=== PATIENT | female | born 1970 | race Hispanic/Latino ===

== ENCOUNTER 2018-03-08 10:10 | Emergency (ER) | payer BC ==
[2018-03-08 10:16] VITALS: BMI 38.4
[2018-03-08 10:23] VITALS: RESP 18; TEMP 97.9; O2SAT 100
--- NOTE | 2018-03-08 10:23 | ED PDOC ---
Arrival/HPI - General Chief Complaint: Chest Pain Time Seen by Provider: 03/08/18 10:21 Historian: Patient - History of Present Illness Narrative History of Present Illness (Text): 03/08/18 10:30 47 year old female, who presents to the emergency department complaining of intermittent chest pain since 2 weeks. Patient reports going to her PMD and he advised her to come here. She describe the pain to be pressure and notes being given Aspirin FRONT OFFICE COORDINATOR. No other complaints were made. pt characterizes pain as pressure pain "radiating to back" 03/08/18 15:15 Time/Duration: > week Symptom Onset: Gradual Symptom Course: Unchanged, Intermittent Quality: Pressure Context: Home 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) - Infectious Disease Hx of Infectious Diseases: None - Tetanus Immunization Tetanus Immunization: Up to Date - Past Medical History Past Medical History: No Previous - Cardiac Hx Cardiac Disorders: No Hx Angina: No - Pulmonary Hx Respiratory Disorders: No - Neurological Hx Neurological Disorder: No - HEENT Hx HEENT Disorder: No - Renal Hx Renal Disorder: No - Endocrine/Metabolic Hx Endocrine Disorders: No - Hematological/Oncological Hx Blood Disorders: No - Integumentary Hx Dermatological Disorder: No - Musculoskeletal/Rheumatological Hx Musculoskeletal Disorders: Yes Hx Arthritis: Yes Hx Back Pain: Yes (lumbar strain) - Gastrointestinal Hx Gastrointestinal Disorders: Yes Hx Diverticulitis: Yes - Genitourinary/Gynecological Hx Genitourinary Disorders: No - Psychiatric Hx Psychophysiologic Disorder: Yes Hx Anxiety: Yes Hx Substance Use: No - Past Surgical History Past Surgical History: Non-Contributing (hip surgery R knee surgery) - Surgical History Hx Orthopedic Surgery: No Other/Comment: right knee surgery. L hip sx - Anesthesia Hx Anesthesia: Yes Hx Anesthesia Reactions: No Hx Malignant Hyperthermia: No - Suicidal Assessment Feels Threatened In Home Enviroment: No Family/Social History - Physician Review Nursing Documentation Reviewed: Yes Family/Social History: Unknown Family HX Smoking Status: Vape Hx Alcohol Use: No Hx Substance Use: No Hx Substance Use Treatment: No Allergies/Home Meds Allergies/Adverse Reactions: Allergies No Known Allergies Allergy (Verified 09/24/17 19:02) Home Medications: Home Meds Medication Instructions Recorded Confirmed No Known Home Med 03/08/18 03/08/18 Review of Systems - Physician Review All systems were reviewed & negative as marked: Yes - Review of Systems Constitutional: absent: Fevers Respiratory: absent: SOB Cardiovascular: Chest Pain Physical Exam Vital Signs Reviewed: Yes Vital Signs Temp Pulse Resp BP Pulse Ox 03/08/18 13:28 72 18 142/72 100 03/08/18 12:15 79 18 157/89 H 100 03/08/18 10:23 97.9 F 88 18 144/76 100 Temperature: Afebrile Blood Pressure: Normal Pulse: Regular Respiratory Rate: Normal Appearance: Positive for: Well-Appearing, Non-Toxic, Comfortable Pain Distress: None Mental Status: Positive for: Alert and Oriented X 3 - Systems Exam Head: Present: Atraumatic, Normocephalic Pupils: Present: PERRL Extroacular Muscles: Present: EOMI Conjunctiva: Present: Normal Mouth: Present: Moist Mucous Membranes Respiratory/Chest: Present: Clear to Auscultation, Good Air Exchange. No: Respiratory Distress, Accessory Muscle Use, Wheezes, Rales, Retracting, Rhonchi Cardiovascular: Present: Regular Rate and Rhythm, Normal S1, S2. No: Murmurs Neurological: Present: GCS=15, CN II-XII Intact, Speech Normal Skin: Present: Warm, Dry, Normal Color. No: Rashes Psychiatric: Present: Alert, Oriented x 3, Normal Insight, Normal Concentration Medical Decision Making ED Course and Treatment: 03/08/18 Impression: 47 year old female with unremarkable physical exam, complaining of chest pain for 2 weeks. Plan: -- EKG -- Chest X-ray -- Labs -- Urinalysis -- Reassess and disposition Progress Notes: EKG: Ordered, reviewed, and independently interpreted the EKG. Rate : 89 BPM Rhythm : NSR Interpretation : No ST-segment elevations or depressions, no T-wave inversions, normal intervals. Comparison : No previous EKG for comparison. 03/08/18 11:10 Chest X-ray: Creator : Chasidy Ramos MD COMPARISON:09/24/2017. FINDINGS: LUNGS: The lungs are well inflated and clear. PLEURA: No significant pleural effusion identified, no pneumothorax apparent. CARDIOVASCULAR: The heart is normal in size. OSSEOUS STRUCTURES: No significant abnormalities. VISUALIZED UPPER ABDOMEN: Normal. OTHER FINDINGS: None. IMPRESSION: No active pulmonary disease. 03/08/18 15:16 pt with cp, releived by nitro in er. characterizes pain as radiating to back. angio neg. requested admission, pt refuses signs ama 03/08/18 15:25 Leaving Against Medical Advice (AMA): The patient is choosing to leave against medical advice. I have personally explained to the patient that choosing to do so may result in permanent bodily harm or . I have discussed at great length that without further evaluation and monitoring there may be unforeseen circumstances and/or deterioration causing permanent bodily harm or as a result of their choice. The patient is alert, oriented, and shows the mental capacity to make clear decisions regarding the patients health care at this time. The patient continues to wish to leave against medical advice. In light of the patients decision to leave against medical advice, follow-up has been arranged and the patient is aware of the importance to following up as instructed. The patient has been advised that they should return to the emergency room immediately if they change their mind at any time, or if their condition begins to change or worsen in any way. - Lab Interpretations Lab Results: 03/08/18 10:40 03/08/18 10:40 Lab Results 03/08/18 11:41: Urine Color Yellow, Urine Appearance Clear, Urine pH 7.5, Ur Specific [place] 1.015, Urine Protein Negative, Urine Glucose (UA) Negative, Urine Ketones Negative, Urine Blood Negative, Urine Nitrate Negative, Urine Bilirubin Negative, Urine Urobilinogen 0.2, Ur Leukocyte Esterase Negative 03/08/18 10:40: Sodium 140, Potassium 4.2, Chloride 105, Carbon Dioxide 23, Anion Gap 16, BUN 9, Creatinine 0.8, Est GFR ( Amer) > 60, Est GFR (Non- Af Amer) > 60, Random Glucose 99, Calcium 9.6, Magnesium 1.9, Total Bilirubin 0.4, AST 21, ALT 25, Alkaline Phosphatase 51, Lactate Dehydrogenase 355, Total Creatine Kinase 122, Troponin I < 0.01, NT-Pro-B Natriuret Pep 144, Total Protein 7.0, Albumin 4.2, Globulin 2.8, Albumin/Globulin Ratio 1.5 03/08/18 10:40: PT 12.1, INR 1.05, APTT 27.4 03/08/18 10:40: WBC 8.4, RBC 4.78, Hgb 13.1, Hct 40.1, MCV 83.9, MCH 27.4, MCHC 32.7, RDW 14.1, Plt Count 222, MPV 10.4, Gran % 52.7, Lymph % (Auto) 38.2 H, Walsh % (Auto) 7.1 H, Eos % (Auto) 1.9, Baso % (Auto) 0.1, Gran # 4.44, Lymph # ( Auto) 3.2, Walsh # (Auto) 0.6, Eos # (Auto) 0.2, Baso # (Auto) 0.01 I have reviewed the lab results: Yes - RAD Interpretation Radiology Orders: 03/08/18 10:30 CHEST PORTABLE [RAD] Stat 03/08/18 11:14 ANGIOGRAPHY DISECTION PROTOCOL [CT] Stat Records Custodian: Radiologist - EKG Interpretation Interpreted by ED Physician: Yes Type: 12 lead EKG - Medication Orders Current Medication Orders: Discontinued Medications Nitroglycerin (Nitrostat Sl Tab) 0.4 mg SL STAT STA Stop: 03/08/18 11:08 Last Admin: 03/08/18 11:31 Dose: 0.4 mg - Scribe Statement The provider has reviewed the documentation as recorded by the Arnold Bragg Provider Scribe Attestation: All medical record entries made by the Annamariaibe were at my direction and personally dictated by me. I have reviewed the chart and agree that the record accurately reflects my personal performance of the history, physical exam, medical decision making, and the department course for this patient. I have also personally directed, reviewed, and agree with the discharge instructions and disposition. Disposition/Present on Arrival - Present on Arrival Any Indicators Present on Arrival: No History of DVT/PE: No History of Uncontrolled Diabetes: No Urinary Catheter: No History of Decub. Ulcer: No History Surgical Site Infection Following: None - Disposition Have Diagnosis and Disposition been Completed?: Yes Diagnosis: Chest pain, Left against medical advice Disposition: AGAINST MEDICAL ADVICE Disposition Time: 03:00 Condition: UNKNOWN Discharge Instructions (ExitCare): Leaving Against Medical Advice, Chest Pain ( ED) Additional Instructions: return to er with worsening symptoms or concerns. please see marketing intern. Referrals: Lianna Crowley MD [Staff Provider] - Follow up with primary Lance Donnelly MD [Primary Care Provider] - Follow up with primary Pj Ash MD [Staff Provider] - Follow up with primary Forms: [employer] (Mauritanian)
[2018-03-08 10:49] LABS: BASO # 0.01 K/mm3 (0.0-2.0); BASO % 0.1 % (0.0-3.0); EOS # 0.2 (0.0-0.7); EOS % 1.9 % (1.5-5.0); GRAN # 4.44 (1.4-6.5); GRAN % 52.7 % (50.0-68.0); HEMOGLOBIN 13.1 g/dL (12.0-16.0); LYMPH # 3.2 (1.2-3.4); LYMPH % 38.2 % (22.0-35.0); MEAN CELL VOLUME 83.9 fl (80.0-105.0); MEAN CORPUSCULAR HEMOGLOBIN 27.4 pg (25.0-35.0); MEAN CORPUSCULAR HGB CONC 32.7 g/dl (31.0-37.0); MEAN PLATELET VOLUME 10.4 fl (7.0-11.0); MONO # 0.6 (0.1-0.6); MONO % 7.1 % (1.0-6.0); RBC 4.78 10^6/uL (3.5-6.1); RED CELL DISTRIBUTION WIDTH 14.1 % (11.5-14.5); WHITE BLOOD COUNT 8.4 10^3/ul (4.5-11.0)
[2018-03-08 11:04] LABS: INR 1.05 (0.93-1.08); PARTIAL THROMBOPLASTIN TIME 27.4 Seconds (25.1-36.5); PROTHROMBIN TIME 12.1 SECONDS (9.4-12.5)
--- NOTE | 2018-03-08 11:09 | RAD ---
HISTORY: Chest pain COMPARISON: 09/24/2017. FINDINGS: LUNGS: The lungs are well inflated and clear. PLEURA: No significant pleural effusion identified, no pneumothorax apparent. CARDIOVASCULAR: The heart is normal in size. OSSEOUS STRUCTURES: No significant abnormalities. VISUALIZED UPPER ABDOMEN: Normal. OTHER FINDINGS: None. IMPRESSION: No active pulmonary disease.
[2018-03-08 11:12] LABS: ALB/GLOB RATIO 1.5 (1.1-1.8); ALBUMIN 4.2 g/dL (3.0-4.8); ALT/SGPT 25 U/L (7-56); AST/SGOT 21 U/L (14-36); B-TYPE NATRIURETIC PEPTIDE 144 pg/mL (0-450); BLOOD UREA NITROGEN 9 mg/dL (7-21); CALCIUM 9.6 mg/dL (8.4-10.5); GFR AFRICAN-AMERICAN > 60; GFR NON-AFRICAN AMERICAN > 60
[2018-03-08 11:13] LABS: TROPONIN I < 0.01 ng/mL
[2018-03-08 12:10] LABS: PH,URINE 7.5 (4.7-8.0); URINE BILIRUBIN NEGATIVE (NEGATIVE); URINE BLOOD NEGATIVE (NEGATIVE); URINE GLUCOSE (UA) NEGATIVE (NEGATIVE); URINE LEUKOCYTE ESTERASE NEGATIVE Leu/uL (NEGATIVE); URINE PROTEIN NEGATIVE mg/dL (<30 mg/dL); URINE UROBILINOGEN 0.2 E.U./dL (<1 E.U./dL)
[2018-03-08 12:11] LABS: URINE APPEARANCE CLEAR (CLEAR); URINE COLOR YELLOW (YELLOW)
--- NOTE | 2018-03-08 13:09 | CT ---
PROCEDURE: CT Angiography Chest, Abdomen and Pelvis with and without intravenous contrast HISTORY: Chest pain radiating to back. COMPARISON: None. TECHNIQUE: Contiguous axial images of the chest, abdomen and pelvis were obtained in the phase of aortic enhancement. A noncontrast enhanced CT of the chest was also obtained to evaluate for possible intramural thrombus. Coronal and sagittal reformats were generated. IV dose administered: 150 cc Omnipaque 350. Radiation dose: Total exam DLP = 1432.51 mGy-cm. This CT exam was performed using one or more of the following dose reduction techniques: Automated exposure control, adjustment of the mA and/or kV according to patient size, and/or use of iterative reconstruction technique. FINDINGS: CT ANGIOGRAPHY OF THE CHEST WITH & WITHOUT CONTRAST: AORTA (CHEST AND ABDOMEN): The thoracic and abdominal aorta are unremarkable, without aneurysm, dissection or rupture. No intramural thrombus identified in the thoracic aorta on the non-contrast ct of the chest. The celiac axis, superior mesenteric artery, inferior mesenteric artery and the renal arteries are widely patent. The pelvic arteries are unremarkable. LUNGS: Clear. No nodule, mass or consolidation. MEDIASTINUM: Unremarkable. Normal caliber aorta and pulmonary arterial trunk. No aortic dissection. Normal size heart. LYMPH NODES: Unremarkable. PLEURA: Unremarkable. No pneumothorax. No pleural fluid. BONES: Unremarkable. OTHER FINDINGS: None. CT ANGIOGRAPHY OF THE ABDOMEN AND PELVIS WITH CONTRAST: LIVER: Unremarkable. No gross lesion or ductal dilatation. GALLBLADDER AND BILE DUCTS: Unremarkable. PANCREAS: Unremarkable. No gross lesion or ductal dilatation. SPLEEN: Unremarkable. ADRENALS: Unremarkable. No mass. KIDNEYS AND URETERS: Unremarkable. No hydronephrosis. No solid mass. VASCULATURE: Unremarkable. No aortic aneurysm. STOMACH AND BOWEL: Diverticulosis without an acute inflammatory component or other associated pathologic process. APPENDIX: Normal appendix. PERITONEUM: Unremarkable. No free fluid. No free air. LYMPH NODES: Unremarkable. No enlarged lymph nodes. BLADDER: Unremarkable. REPRODUCTIVE: Pelvic mass likely originating from the left adnexa 3.2 x 3.4 cm. Please refer to sagittal series 604, image 56. The orthogonal axial component of this study identifies the mass on series 6, image 184. BONES: No acute fracture. Status post left LAYNE. No abnormalities with the prosthetic device identified OTHER FINDINGS: None. IMPRESSION: No evidence of aortic aneurysm aortic dissection. No visible pulmonary emboli although study is not designed by protocol to assess at and beyond the segmental branches. Pelvic mass likely emanating from the left adnexa, elective follow-up recommended.
[2018-03-08 13:29] VITALS: BP 142/72; PULSE 72
--- NOTE | 2018-03-08 20:26 | CARD ---
APPROVED REPORT EKG Measurement Heart [id number] <Conclusion> Normal sinus rhythm Nonspecific ST and T wave abnormality Abnormal ECG
== END 2018-03-08 13:33 | disposition left against medical advice (07) ==
LOC: ED 10:10
DX: R07.9 Chest pain, unspecified (principal)
CPT/HCPCS: 71045; 71275; 74175; 80053; 81003; 82550; 83615; 83735; 83880; 84484; 85025; 85610; 85730; 93005; 99284; Q9967

== ENCOUNTER 2018-03-13 22:54 | Observation (INO) | payer BC ==
[2018-03-13 22:54] VITALS: BMI 38.4
[2018-03-14 00:11] LABS: HEMOGLOBIN 12.3 g/dL (12.0-16.0); MEAN CELL VOLUME 85.6 fl (80.0-105.0); MEAN CORPUSCULAR HEMOGLOBIN 27.3 pg (25.0-35.0); MEAN CORPUSCULAR HGB CONC 31.9 g/dl (31.0-37.0); RBC 4.5 10^6/uL (3.5-6.1); RED CELL DISTRIBUTION WIDTH 14.3 % (11.5-14.5); WHITE BLOOD COUNT 8.6 10^3/ul (4.5-11.0)
[2018-03-14 00:17] LABS: ALB/GLOB RATIO 1.3 (1.1-1.8); ALT/SGPT 19 U/L (7-56); AST/SGOT 29 U/L (14-36); BLOOD UREA NITROGEN 10 mg/dL (7-21); CALCIUM 9.4 mg/dL (8.4-10.5); GFR AFRICAN-AMERICAN > 60; GFR NON-AFRICAN AMERICAN > 60
[2018-03-14 00:23] LABS: INR 1.01 (0.93-1.08); PARTIAL THROMBOPLASTIN TIME 19.9 Seconds (25.1-36.5); PROTHROMBIN TIME 11.5 SECONDS (9.4-12.5)
[2018-03-14 00:28] LABS: TROPONIN I < 0.01 ng/mL
[2018-03-14] MEDS ORDERED: HYDROmorphone 0.5 mg/0.5 ml ISec IVP STA (00:50)
--- NOTE | 2018-03-14 01:25 | ED PDOC ---
Arrival/HPI - General Chief Complaint: Chest Pain Time Seen by Provider: 03/13/18 23:07 Historian: Patient - History of Present Illness Narrative History of Present Illness (Text): 03/13/18 23:35 47 year old female, with no significant past medical history, presents to the emergency department complaining of intermittent chest pain for the past week. Patient was seen in the emergency department earlier this week and was evaluated and had a CT chest angio and labs which came back negative. Patient was invited to admission, but decided to sign out against medical advice. Patient returned now complaining of frequent reoccurring chest pain today. Patient describes the pain as a pressure like sensation with no association of shortness of breath. Patient states that she had taken sublingual nitroglycerin and aspirin from her which offered relief. Patient denies any fever, chills, shortness of breath, nausea, vomiting, diarrhea, urinary symptoms, back pain, neck pain, headache, dizziness, or any other complaints. PMD: Dr. Donnelly Time/Duration: Other (1 week) Symptom Onset: Gradual Symptom Course: Intermittent Activities at Onset: Light 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) - Infectious Disease Hx of Infectious Diseases: None - Tetanus Immunization Tetanus Immunization: Up to Date - Reproductive Menopause: No - Past Medical History Past Medical History: No Previous - Cardiac Hx Cardiac Disorders: No Hx Angina: No - Pulmonary Hx Respiratory Disorders: No - Neurological Hx Neurological Disorder: No - HEENT Hx HEENT Disorder: No - Renal Hx Renal Disorder: No - Endocrine/Metabolic Hx Endocrine Disorders: No - Hematological/Oncological Hx Blood Disorders: No - Integumentary Hx Dermatological Disorder: No - Musculoskeletal/Rheumatological Hx Musculoskeletal Disorders: Yes Hx Arthritis: Yes Hx Back Pain: Yes (lumbar strain) - Gastrointestinal Hx Gastrointestinal Disorders: Yes Hx Diverticulitis: Yes - Genitourinary/Gynecological Hx Genitourinary Disorders: No - Psychiatric Hx Psychophysiologic Disorder: Yes Hx Anxiety: Yes Hx Substance Use: No - Past Surgical History Past Surgical History: Non-Contributing (hip surgery R knee surgery) - Surgical History Hx Hysterectomy: Yes Hx Orthopedic Surgery: No Other/Comment: right knee surgery. L hip sx - Anesthesia Hx Anesthesia: Yes Hx Anesthesia Reactions: No Hx Malignant Hyperthermia: No - Suicidal Assessment Feels Threatened In Home Enviroment: No Family/Social History - Physician Review Nursing Documentation Reviewed: Yes Family/Social History: No Known Family HX Smoking Status: Current Some Days Smoker Hx Alcohol Use: No Hx Substance Use: No Hx Substance Use Treatment: No Allergies/Home Meds Allergies/Adverse Reactions: Allergies No Known Allergies Allergy (Verified 03/13/18 23:56) Home Medications: Home Meds Medication Instructions Recorded Confirmed No Known Home Med 03/08/18 03/13/18 Review of Systems - Physician Review All systems were reviewed & negative as marked: Yes - Review of Systems Constitutional: absent: Fevers, Other (Chills) Respiratory: absent: SOB Cardiovascular: Chest Pain Gastrointestinal: absent: Diarrhea, Nausea, Vomiting Genitourinary Female: absent: Dysuria, Frequency, Hematuria Musculoskeletal: absent: Back Pain, Neck Pain Neurological: absent: Headache, Dizziness Physical Exam Vital Signs Reviewed: Yes Vital Signs Temp Pulse Resp BP Pulse Ox 03/14/18 00:03 76 17 135/83 100 03/13/18 23:00 98.6 F 99 H 20 154/90 H 99 Temperature: Afebrile Blood Pressure: Hypertensive Pulse: Regular Respiratory Rate: Normal Appearance: Positive for: Well-Appearing, Non-Toxic, Comfortable Pain Distress: None Mental Status: Positive for: Alert and Oriented X 3 - Systems Exam Head: Present: Atraumatic, Normocephalic Pupils: Present: PERRL Extroacular Muscles: Present: EOMI Conjunctiva: Present: Normal Mouth: Present: Moist Mucous Membranes Neck: Present: Normal Range of Motion Respiratory/Chest: Present: Clear to Auscultation, Good Air Exchange. No: Respiratory Distress, Accessory Muscle Use Cardiovascular: Present: Regular Rate and Rhythm, Normal S1, S2. No: Murmurs Abdomen: No: Tenderness, Distention, Peritoneal Signs Back: Present: Normal Inspection Upper Extremity: Present: Normal Inspection. No: Cyanosis, Edema Lower Extremity: Present: Normal Inspection. No: Edema Neurological: Present: GCS=15, CN II-XII Intact, Speech Normal Skin: Present: Warm, Dry, Normal Color. No: Rashes Psychiatric: Present: Alert, Oriented x 3, Normal Insight, Normal Concentration Medical Decision Making ED Course and Treatment: 03/13/18 23:35 Impression: 47 year old female, presents complaining of intermittent chest pain for that past week. Plan: -- EKG -- labs -- Chest X-ray -- Aspirin, Dilaudid -- Reassess and disposition Prior Visits: Notes and results from previous visits were reviewed. Patient was last seen in the emergency department on 03/08/18 presents complaining of of intermittent chest pain since 2 weeks. Patient left against medical advice. Progress Notes: EKG shows NSR at 87 BPM with non-specific ST/T changes. Unchanged from pervious on 03/08/18. Interpreted by me. 03/14/18 01:[address] Pinzon covering Dr. Alanis who is aware and agrees with the plan. Accepts patient into Dr. Alanis service and request Dr. Crowley under consult. - Lab Interpretations Lab Results: 03/13/18 23:49 03/13/18 23:49 Lab Results 03/13/18 23:49: WBC 8.6, RBC 4.50, Hgb 12.3, Hct 38.5, MCV 85.6, MCH 27.3, MCHC 31.9, RDW 14.3, Plt Count 233, MPV 11.0 03/13/18 23:49: Sodium 139, Potassium 4.2, Chloride 104, Carbon Dioxide 26, Anion Gap 14, BUN 10, Creatinine 0.8, Est GFR ( Amer) > 60, Est GFR (Non- Af Amer) > 60, Random Glucose 97, Calcium 9.4, Total Bilirubin 0.5, AST 29, ALT 19, Alkaline Phosphatase 38 D, Lactate Dehydrogenase 550, Total Creatine Kinase 55, Troponin I < 0.01, Total Protein 7.0, Albumin 4.0, Globulin 3.0, Albumin/Globulin Ratio 1.3 03/13/18 23:49: PT 11.5, INR 1.01, APTT 19.9 L I have reviewed the lab results: Yes - RAD Interpretation Radiology Orders: 03/13/18 23:41 CHEST PORTABLE [RAD] Stat - EKG Interpretation Interpreted by ED Physician: Yes Type: 12 lead EKG - Medication Orders Current Medication Orders: Discontinued Medications Aspirin (Aspirin) 325 mg PO ONCE STA Stop: 03/14/18 00:51 Last Admin: 03/14/18 00:58 Dose: 325 mg Hydromorphone HCl (Dilaudid) 0.5 mg IVP STAT STA Stop: 03/14/18 00:51 Last Admin: 03/14/18 00:58 Dose: 0.5 mg MAR Pain Assessment Document 03/14/18 00:58 IT (Rec: 03/14/18 00:58 IT [id number]) Pain Reassessment Is this a pain reassessment? No Sleep Is patient sleeping during reassessment? No Presence of Pain Presence of Pain Yes Pain Scale Used Pain Scale Used Numeric Location Left, Right or Bilateral Bilateral Pain Location Body Site Chest Description Description Constant Intensity of Pain at present 8 IVP Administration Document 03/14/18 00:58 IT (Rec: 03/14/18 00:58 IT [id number]) Charges for Administration # of IVP Administrations 1 - Scribe Statement The provider has reviewed the documentation as recorded by the Annamariaibkemal Ayers Provider Scribe Attestation: All medical record entries made by the Scribe were at my direction and personally dictated by me. I have reviewed the chart and agree that the record accurately reflects my personal performance of the history, physical exam, medical decision making, and the department course for this patient. I have also personally directed, reviewed, and agree with the discharge instructions and disposition. Disposition/Present on Arrival - Present on Arrival Any Indicators Present on Arrival: No History of DVT/PE: No History of Uncontrolled Diabetes: No Urinary Catheter: No History of Decub. Ulcer: No History Surgical Site Infection Following: None - Disposition Have Diagnosis and Disposition been Completed?: Yes Diagnosis: Chest pain Disposition: HOSPITALIZED Disposition Time: 01:48 Patient Plan: Observation Condition: STABLE Discharge Instructions (ExitCare): Chest Pain (ED) Referrals: Lance Donnelly MD [Primary Care Provider] - Follow up with primary Forms: [employer] ([place]an)
--- NOTE | 2018-03-14 09:15 | HP ---
HISTORY OF PRESENT ILLNESS: Ms. Barron is a 47-year-old female, admitted to the hospital with left-sided chest pain. She was evaluated earlier in the ED with similar complaint. CT angio was done, which was negative. She left against medical advice last time earlier this week. Denies any shortness of breath. No fever. No chest pain. No cough with expectoration. PAST MEDICAL HISTORY: Osteoarthritis; back pain, chronic; diverticulitis. PAST SURGICAL HISTORY: Right knee surgery, hysterectomy. FAMILY HISTORY: Noncontributory. PERSONAL HISTORY: Some day smoker. No history of alcohol abuse. ALLERGIES: NO KNOWN DRUG ALLERGIES. HOME MEDICATIONS: None. REVIEW OF SYSTEMS: As per HPI. Rest of 12-point review of systems reviewed negative. PHYSICAL EXAMINATION: GENERAL: Comfortable in bed, in no acute distress. VITAL SIGNS: Temperature 98.6, heart rate is 99 per minute, respiratory rate 18 per minute, blood pressure 135/83, pulse ox is 100% on room air. HEENT: Normal. NECK: No lymphadenopathy. CHEST: Air entry present and equal bilateral. No added sound. CARDIOVASCULAR: S1 and S2 normal. No murmur. No gallop. ABDOMEN: Soft, nontender. No hepatosplenomegaly. EXTREMITY: No edema. SPINE: Nontender. SKIN: No petechiae. No rash. LABORATORY DATA: White count 8.6, hemoglobin 12.3, hematocrit 38.5, platelet 233. Sodium 139, potassium 4.2, BUN 10, creatinine 0.8, glucose 97. EKG, nonspecific ST-T changes. Similar to previous one. Chest x-ray: No infiltrates. ASSESSMENT: 1. Left-sided chest pain. 2. Osteoarthritis. PLAN: She will be admitted to the hospital, tele monitoring. We will monitor the troponins. Aspirin 81 mg daily. Cardiology consultation, Dr. Crowley requested. Further management as per Cardiology. Blood count stable. Renal functions normal. Coags normal. Tamara Pinzon MD
--- NOTE | 2018-03-14 09:50 | RAD ---
HISTORY: Chest pain. COMPARISON: Comparison chest 03/08/2018 FINDINGS: LUNGS: Poor inspiration with low lung volumes, crowded bronchovascular markings and mild bibasilar atelectasis PLEURA: No significant pleural effusion identified, no pneumothorax apparent. CARDIOVASCULAR: Heart size appears well aligned mildly enlarged OSSEOUS STRUCTURES: No significant abnormalities. VISUALIZED UPPER ABDOMEN: Normal. OTHER FINDINGS: None. IMPRESSION: Poor inspiration with low lung volumes, crowded bronchovascular markings and mild bibasilar atelectasis
[2018-03-14 18:16] VITALS: RESP 20
[2018-03-14 20:52] LABS: TROPONIN I < 0.01 ng/mL
--- NOTE | 2018-03-14 21:41 | CARD ---
APPROVED REPORT EKG Measurement Heart [id number] PA [id number] [id number] <Conclusion> Sinus rhythm with short PA Otherwise normal ECG
[2018-03-15 00:56] VITALS: TEMP 98.3
[2018-03-15 06:33] VITALS: BP 132/68; PULSE 76; O2SAT 98
[2018-03-15 07:38] LABS: TROPONIN I 0.01 ng/mL
[2018-03-15 07:51] LABS: LDL CHOLESTEROL 92 mg/dL (0-129)
[2018-03-15 07:56] LABS: ALB/GLOB RATIO 1.4 (1.1-1.8); ALT/SGPT 18 U/L (7-56); AST/SGOT 17 U/L (14-36); BLOOD UREA NITROGEN 10 mg/dL (7-21); CALCIUM 9.2 mg/dL (8.4-10.5); GFR AFRICAN-AMERICAN > 60; GFR NON-AFRICAN AMERICAN > 60; HDL CHOLESTEROL 49 mg/dL (29-60)
--- NOTE | 2018-03-15 16:20 | CARD ---
APPROVED REPORT EXAM: Two-dimensional and M-mode echocardiogram with Doppler and color Doppler. INDICATION CHEST PAIN 2D DIMENSIONS Left Atrium (2D)3.8 (1.6-4.0cm)IVSd0.9 (0.7-1.1cm) LVDd4.5 (3.9-5.9cm)PWd1.0 (0.7-1.1cm) LVDs2.8 (2.5-4.0cm)FS (%) 37.1 % LVEF (%)67.1 (>50%) M-Mode DIMENSIONS Aortic Root2.60 (2.2-3.7cm)Aortic Cusp Exc.1.70 (1.5-2.0cm) Aortic Valve AoV Peak Fjmbawoa228.0cm/Tarsha Peak GR.8mmHg Mitral Valve MV E Nnyuwzxi59.7cm/sMV A Bjqvbvnw96.3cm/sE/A ratio1.3 TDI Lateral E' Peak V11.80cm/sMedial E' Peak V7.99cm/sE/Lateral E'5.5 E/Medial E'8.1 Pulmonary Valve PV Peak Peoqcpds69.5cm/sPV Peak Grad.2mmHg Tricuspid Valve TR Peak Zxyahvac740tb/sRAP YJAUIGTZ41fzQuBV Peak Gr.21mmHg [id number] LEFT VENTRICLE The left ventricle is normal size. There is normal left ventricular wall thickness. The left ventricular function is normal.EF-65% There is normal LV segmental wall motion. The left ventricular diastolic function is normal. No left ventricle thrombus noted on this study. There is no ventricular septal defect visualized. There is no left ventricular aneurysm. There is no mass noted in the left ventricle. RIGHT VENTRICLE The right ventricle is normal size. There is normal right ventricular wall thickness. The right ventricular systolic function is normal. ATRIA The left atrium size is normal. The right atrium size is normal. The interatrial septum is intact with no evidence for an atrial septal defect. AORTIC VALVE The aortic valve is normal in structure. No aortic regurgitation is present. There is no aortic valvular stenosis. There is no aortic valvular vegetation. MITRAL VALVE The mitral valve is normal in structure. Mitral regurgitation is trace. There is no mitral valve stenosis. There is no evidence of mitral valve prolapse. TRICUSPID VALVE The tricuspid valve is normal in structure. There is trace tricuspid regurgitation.RVSP-31 mof hg. There is no tricuspid valve stenosis. There is no tricuspid valve prolapse or vegetation. PULMONIC VALVE The pulmonary valve is normal in structure. Trivial Pi There is no pulmonic valvular stenosis. GREAT VESSELS The aortic root is normal in size. The ascending aorta is normal in size. The pulmonary artery is normal. The IVC is normal in size and collapses >50% with inspiration. PERICARDIAL EFFUSION There is no pleural effusion. There is no pericardial effusion. <Conclusion> Normal chamber Size. EF-65% No aortic regurgitation is present. Mitral regurgitation is trace. There is trace tricuspid regurgitation.RVSP-31 mof hg. Trivial Pi The IVC is normal in size and collapses >50% with inspiration. There is no pericardial effusion. No vegetation or thrombus noted.
--- NOTE | 2018-03-15 22:46 | CON ---
DATE: 03/15/2018 SERVICE: Cardiology. REASON FOR THE CONSULTATION AND FOLLOWUP: Chest pain, retrosternal, 3 times over a period of a week. BRIEF CLINICAL HISTORY: A 47-year-old female with past medical history significant for gastroesophageal reflux, osteoarthritis status post right hip surgery and hysterectomy and history of colitis, who came to the Emergency Room with complaint of chest pain. Over a period of 1 week, the patient had 3 episodes of chest pain. Last Thursday, the patient came in and then signed out AMA before that. The patient had chest pain yesterday. Thursday again patient had chest pain, like a very sharp, feels that heavy something sitting in the chest, but felt sharp pain. A CT angio was done, which is negative. So far, the troponin is negative. The patient denies any chest pain, no dizziness. There is no chest pain on exertion. PAST MEDICAL HISTORY: Significant for gastroesophageal reflux. PAST SURGICAL HISTORY: Significant for hip surgery. SOCIAL HISTORY: Denies smoking. Denies any history of alcohol abuse. CURRENT MEDICATIONS: No known medications except Prilosec for gastroesophageal reflux. FAMILY HISTORY: No history significant for coronary artery disease. REVIEW OF SYSTEMS: As per HPI. PHYSICAL EXAMINATION: VITAL SIGNS: Temperature afebrile, heart rate 72, blood pressure 132/68. HEENT: PERRLA. Extraocular muscles intact. NECK: Supple. No carotid bruits or thyromegaly. CHEST: Clear to auscultation. HEART: S1 and S2 regular. ABDOMEN: Soft. EXTREMITIES: Clubbing and cyanosis negative. LABORATORY DATA: Blood workup as follows: WBC 6.6, hemoglobin 12.3, hematocrit 38.5, platelet count 233. Chemistry shows sodium 140, potassium 4.2, chloride 102, carbon dioxide , anion gap of 14, BUN 10, creatinine 0.8. Troponin 0.01 negative, and last night repeat again negative. CPK remains flat at 38, before that 55. IMPRESSION: Atypical chest pain, obesity, body mass index 38 kg/m2. Three ER visits with chest pain. The patient came in on 03/08/2018 with chest pain and then signed out AMA. Prior to that, the patient came in September and discharged. This time, the patient came in on 03/14/2018 with chest pain, yesterday. So far, troponin remains negative. EKG; normal sinus, no acute ST-T changes noted. RECOMMENDATION: Given the multiple histories of coronary artery disease, suggest echo and stress test today. Further recommendation after the stress test. We will add on troponin in the morning, blood drawn. Also add lipid profile, TSH, hemoglobin A1c. We will follow with you. Discussed in length with the patient. The patient agreed to proceed for stress test. We will keep n.p.o. Thank you Dr. Alanis, for providing us the opportunity in taking care of the patient, Clemencia Barron. Lianna Crowley MD
--- NOTE | 2018-03-15 23:23 | CARD ---
APPROVED REPORT Protocol: EMELIA Test Type: Sestamibi Stress Test Attending Physician: Dr. Lianna Castro Referring Physician: Dr. Mariusz Alanis Test Indications: Chest Pain Height:5 ft 2 in Weight:208lbs Medications: Tylenol Medical History: 47 y/o female. Hx of chest pain,gerd,arthritis, anxiety,diverticulitis. Target HR: 175 bpm Resting ECG: RSR, Resting Heart Rate: 103 bpm Resting Blood Pressure: 120/90mmHg Submaximum (85%): 149 bpm POST EXERCISE Reason for Termination: Fatigue Target HR: No Max HR: 160 bpm 93% of Maximum Predicted HR: 175 bpm Exercise duration: 06:05 min:sec, 3 Stage Exercise capacity: 7.1METs Max Blood Pressure: 174/80mmHg Blood Pressure response to exercise: normal resting BP - appropriate response Heart Rate response to exercise: appropriate Chest Pain: Yes, In Post Exercise Stress Test felt Pressure like Chest Pain. Angina index: 0 Arrhythmia: No, none ST Change: No, none Deviation: 0 mm TEST SUMMARY [id number]/90.0. [id number]/90.0. PRETESTHYPERV.00:[id number]/90.0. PRETESTWARM-UP00:[id number]/90.0. EXERCISESTAGE 103:[id number]/80.0. EXERCISESTAGE 203:[id number]/80.0. EXERCISESTAGE 300:[id number]/80.0. [id number]/80.0. INTERPRETATION Stress EKG Conclusion: MYOVIEW NUCLEAR STRESS TEST STOPPED FAFTER 6 MINUTES AND 5 SECONDS OF EMELIA PROTOCOL DUE TO FATIGUE. PATIENT ACHIEVED 93% OF PREDICTED HEART RATE. PATIENT IN POST EXERCISE REST FELT TIGHTNESS IN CHEST. NO ST-T CHANGES SEEN. NUCLEAR SCAN REPORT PENDING. Signed by Lianna Castro Electronically Approved: 03/15/2018 13:07:58 EXAM: Myocardial Perfusion REST/STRESS Stress Test Type: Exercise Treadmill Imaging Protocol Rest Spect myocardial perfusion imaging was performed in supine position 50 minutes following the injection of 10.8 mCi of Tc-99 Myoview. At peak stress, the patient was injected intravenously with 30.4mCi of Tc-99 tetrofosmin after an exercise time of 6 minutes and 05 seconds. Gated Stress Spect was performed 70 minutes after intravenous Tc-99 Myoview injection. The images were gated to evaluate regional wall motion and calculate ventricular ejection fraction.Images were reconstructed using backfilter projection method in short horizontal and verticle long axis. Spect slices were generated. LV Perfusion The quality of the study is good. The left ventricle is normal in size. The right ventricle is unremarkable. The lung uptake is within normal limits. The distribution of tracer reveals normal uptake pattern throughout the LV myocardium on the stress study. The rest myocardial perfusion study shows no significant change. Wall Motion Wall motion study shows good contractility of the left ventricle. LVEF = 72%. Conclusion 1. Normal SPECT myocardial perfusion study. 2. Normal gated wall motion of the left ventricle.
--- NOTE | 2018-03-16 06:01 | DS ---
HISTORY OF PRESENT ILLNESS: This is a 47-year-old female who had come into the hospital with atypical chest pain. She was seen by Dr. Crowley and a stress test has been planned. Once the stress test is done and if the preliminary is negative, the patient will be discharged home. She has no complaints of any headaches, no dizziness, no nausea. She said it was mostly substernal, but has resolved at this point. PHYSICAL EXAMINATION VITAL SIGNS: Temperature is 98.3, pulse of 76, blood pressure 132/68, respirations 20, O2 saturation 98%. GENERAL: The patient is lying in bed, flat, comfortable. HEENT: No oral lesion. Anicteric sclerae. Moist mucosa. NECK: No JVD, adenopathy, or thyromegaly. CARDIOVASCULAR: S1 and S2, regular. No murmurs, rubs, or gallops. LUNGS: Clear to auscultation bilaterally. No wheeze, rales, or rhonchi. ABDOMEN: Bowel sounds are positive, soft, nontender and nondistended. EXTREMITIES: No cyanosis, clubbing or edema. ASSESSMENT: Chest pain, atypical. PLAN: The patient is on aspirin. Yesterday, an echo has been ordered and a stress test has been ordered. CONDITION: Stable. ACTIVITIES: Increase as tolerated. DISPOSITION: Discharge home. She can follow up with Dr. Donnelly. Addendum: Echo and Stress reviewed. Normal. Mariusz Alanis MD MTDJacob
== END 2018-03-15 13:55 | disposition home or self-care (01) ==
LOC: ED 22:54 → ERH 03-14 01:44 → 2RSO 03-14 02:28
PROVIDERS: ADMIT Internal Medicine Nephrology; ATTEND Internal Medicine Nephrology
DX: R07.89 Other chest pain (principal); K21.9 Gastro-esophageal reflux disease without esophagitis; E66.9 Obesity, unspecified; Z68.38 Body mass index [BMI] 38.0-38.9, adult; Z90.710 Acquired absence of both cervix and uterus; Z96.642 Presence of left artificial hip joint
CPT/HCPCS: 36415; 71045; 78452; 80053; 80061; 82550; 83036; 83615; 83735; 84100; 84443; 84484; 85027; 85610; 85730; 93005; 93017; 93306; 96374; 99285; A9502; G0378; J1170

== ENCOUNTER 2018-05-31 08:32 | Inpatient (IN) | payer BC ==
[2018-05-31] MEDS ORDERED: Sodium Chloride 0.9% 1,000 ML IV STA (09:14)
[2018-05-31] MEDS ORDERED: Morphine 4 mg/ml ISec IVP STA ×2 (09:15→11:56)
--- NOTE | 2018-05-31 09:16 | ED PDOC ---
Arrival/HPI - General Chief Complaint: Abdominal Pain Time Seen by Provider: 05/31/18 08:51 Historian: Patient - History of Present Illness Narrative History of Present Illness (Text): 05/31/18 09:09 A 47 year old female, whose past medical history includes diverticulitis and partial hysterectomy, presents to the emergency department complaining of intermittent lower abdominal pain for 2 weeks. Patient reports current episode began last night and has progressively worsened since. Patient has a history of chronic loose stools, but reports 2 episodes of black stool last week which resolved. Patient notes mild nausea but denies any fever, chills, vomiting, heamturia, chest pain, shortness of breath or any other complaints. Patient denies any recent travel. PMD: Dr. Donnelly Time/Duration: Other (2 weeks) Symptom Course: Worsening (since last night) Quality: Other Context: Home 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) - Infectious Disease Hx of Infectious Diseases: None - Tetanus Immunization Tetanus Immunization: Up to Date - Past Medical History Past Medical History: No Previous - Cardiac Hx Cardiac Disorders: Yes Hx Angina: Yes - Pulmonary Hx Respiratory Disorders: No - Neurological Hx Neurological Disorder: No - HEENT Hx HEENT Disorder: No - Renal Hx Renal Disorder: No - Endocrine/Metabolic Hx Endocrine Disorders: No - Hematological/Oncological Hx Blood Disorders: No - Integumentary Hx Dermatological Disorder: No - Musculoskeletal/Rheumatological Hx Musculoskeletal Disorders: No Hx Falls: No - Gastrointestinal Hx Gastrointestinal Disorders: Yes Hx Diverticulitis: Yes Hx Gastroesophageal Reflux: Yes - Genitourinary/Gynecological Hx Genitourinary Disorders: No - Psychiatric Hx Psychophysiologic Disorder: Yes Hx Anxiety: Yes Hx Substance Use: No - Past Surgical History Past Surgical History: Non-Contributing (hip surgery R knee surgery) - Surgical History Hx Hysterectomy: Yes (partial) Other/Comment: left hip replacement, torn meniscus sx - Anesthesia Hx Anesthesia: Yes Hx Anesthesia Reactions: No Hx Malignant Hyperthermia: No - Suicidal Assessment Feels Threatened In Home Enviroment: No Family/Social History - Physician Review Nursing Documentation Reviewed: Yes Family/Social History: No Known Family HX Smoking Status: Never Smoked Hx Alcohol Use: Yes (occassional) Hx Substance Use: No Hx Substance Use Treatment: No Allergies/Home Meds Allergies/Adverse Reactions: Allergies ciprofloxacin [From Cipro] Adverse Reaction (Verified 05/31/18 14:06) Delusional metronidazole [From Flagyl] Adverse Reaction (Verified 05/31/18 14:06) delusional Home Medications: Home Meds Medication Instructions Recorded Confirmed Omeprazole 40 mg PO DAILY 05/31/18 05/31/18 Review of Systems - Physician Review All systems were reviewed & negative as marked: Yes - Review of Systems Constitutional: absent: Fevers, Night Sweats Respiratory: absent: SOB Cardiovascular: absent: Chest Pain Gastrointestinal: Abdominal Pain (lower), Stool Changes (loose, chronic), Nausea. absent: Vomiting Genitourinary Female: absent: Hematuria Physical Exam Vital Signs Reviewed: Yes Vital Signs Temp Pulse Resp BP Pulse Ox 05/31/18 12:15 78 18 128/79 99 05/31/18 12:00 98.9 F 78 18 129/76 98 05/31/18 10:33 74 18 104/70 99 05/31/18 08:56 98.4 F 94 H 18 131/85 96 Temperature: Afebrile Blood Pressure: Normal Pulse: Tachycardic Respiratory Rate: Normal Appearance: Positive for: Well-Appearing, Non-Toxic, Comfortable Pain Distress: None Mental Status: Positive for: Alert and Oriented X 3 - Systems Exam Head: Present: Atraumatic, Normocephalic Pupils: Present: PERRL Extroacular Muscles: Present: EOMI Conjunctiva: Present: Normal Mouth: Present: Moist Mucous Membranes Neck: Present: Normal Range of Motion Respiratory/Chest: Present: Clear to Auscultation, Good Air Exchange. No: Respiratory Distress, Accessory Muscle Use Cardiovascular: Present: Regular Rate and Rhythm, Normal S1, S2. No: Murmurs Abdomen: Present: Tenderness (Lower abdominal tenderness to palpation, left worse than right), Normal Bowel Sounds. No: Distention, Peritoneal Signs, Rebound, Guarding Back: Present: Normal Inspection Upper Extremity: Present: Normal Inspection. No: Cyanosis, Edema Lower Extremity: Present: Normal Inspection. No: Edema Neurological: Present: GCS=15, CN II-XII Intact, Speech Normal Skin: Present: Warm, Dry, Normal Color. No: Rashes Psychiatric: Present: Alert, Oriented x 3, Normal Insight, Normal Concentration Medical Decision Making ED Course and Treatment: 05/31/18 09:09 Impression: A 47 year old female with lower abdominal pain. Patient notes nausea. Hx of diverticulitis. Plan: -- Abdomen and pelvis CT -- Labs -- Urine culture and Urinalysis -- Morphine, Zofran and IV fluids -- Reassess and disposition Progress Notes: PROCEDURE: CT Abdomen and Pelvis without intravenous contrast Report Date : 05/31/2018 10:56:48 Dictator : Lester Reis MD IMPRESSION: Sigmoid colon diverticulosis with pericolonic fat infiltration consistent with acute diverticulitis. 3.8 centimeter left ovarian cystic lesion for which short-term interval followup is recommended. Case discussed with Dr. Alanis, who states to place the patient as an inpatient admission. Patient aware of and in agreement with plan. - Lab Interpretations Lab Results: 05/31/18 09:00 05/31/18 09:00 Lab Results 05/31/18 10:00: Urine Color Yellow, Urine Appearance Clear, Urine pH 6.0, Ur Specific Marvin 1.020, Urine Protein Negative, Urine Glucose (UA) Negative, Urine Ketones Negative, Urine Blood Moderate H, Urine Nitrate Negative, Urine Bilirubin Negative, Urine Urobilinogen 0.2, Ur Leukocyte Esterase Negative, Urine RBC 10 - 15, Urine WBC 0 - 2, Ur Epithelial Cells 6 - 8, Urine Bacteria Many, Urine Other Fiber 05/31/18 09:00: Sodium 140, Potassium 3.9, Chloride 105, Carbon Dioxide 24, Anion Gap 14, BUN 8, Creatinine 0.7, Est GFR ( Amer) > 60, Est GFR (Non- Af Amer) > 60, Random Glucose 102, Calcium 8.8, Magnesium 1.8, Total Bilirubin 0.8, AST 15, ALT 23, Alkaline Phosphatase 56, Total Protein 7.1, Albumin 4.0, Globulin 3.1, Albumin/Globulin Ratio 1.3, Lipase 25 05/31/18 09:00: PT 12.7 H, INR 1.16 H, APTT 28.1 05/31/18 09:00: WBC 7.6, RBC 4.76, Hgb 12.9, Hct 39.5, MCV 83.0, MCH 27.1, MCHC 32.7, RDW 14.4, Plt Count 181, MPV 10.9, Gran % 65.4, Lymph % (Auto) 20.0 L, [place] % (Auto) 13.3 H, Eos % (Auto) 1.2 L, Baso % (Auto) 0.1, Gran # 4.97, Lymph # (Auto) 1.5, [place] # (Auto) 1.0 H, Eos # (Auto) 0.1, Baso # (Auto) 0.01 I have reviewed the lab results: Yes - RAD Interpretation Radiology Orders: 05/31/18 09:15 ABD & PELVIS IV CONTRAST ONLY [CT] Stat - Medication Orders Current Medication Orders: Sodium Chloride (Sodium Chloride 0.9%) 1,000 mls @ 100 mls/hr IV .Q10H GALLO Stop: 06/01/18 08:29 Piperacillin Sod/Tazobactam Sod (Zosyn 3.375 In Ns 100ml) 100 mls @ 200 mls/hr IVPB Q6 GALLO PRN Reason: Protocol Stop: 06/01/18 00:29 Morphine Sulfate (Morphine) 1 mg IVP Q4H PRN PRN Reason: Pain, severe (8-10) Ondansetron HCl (Zofran Inj) 4 mg IVP Q6H PRN PRN Reason: Nausea/Vomiting Last Admin: 05/31/18 13:20 Dose: 4 mg IVP Administration Document 05/31/18 13:20 SES (Rec: 05/31/18 13:20 [id number]) Charges for Administration # of IVP Administrations 1 Discontinued Medications Sodium Chloride (Sodium Chloride 0.9%) 1,000 mls @ 1,000 mls/hr IV .Q1H STA Stop: 05/31/18 10:13 Last Admin: 05/31/18 09:28 Dose: 1,000 mls/hr eMAR Start Stop Document 05/31/18 09:28 EWO (Rec: 05/31/18 09:28 FIFIO [id number]) Intravenous Solution Start Date 05/31/18 Start Time 09:28 End Date 05/31/18 End time 10:28 Total Infusion Time 60 Ciprofloxacin (Cipro 400mg/200ml Dsw) 400 mg in 200 mls @ 133.3 mls/hr IVPB STAT STA PRN Reason: Protocol Stop: 05/31/18 13:26 Last Admin: 05/31/18 15:32 Dose: Not Given Non-Admin Reason: Patient Refused Metronidazole (Flagyl) 500 mg in 100 mls @ 100 mls/hr IVPB STAT STA PRN Reason: Protocol Stop: 05/31/18 12:55 Last Admin: 05/31/18 12:12 Dose: 100 mls/hr eMAR Start Stop Document 05/31/18 12:12 EWO (Rec: 05/31/18 12:12 [facility] [id number]) Intravenous Solution Start Date 05/31/18 Start Time 12:12 End Date 05/31/18 End time 13:12 Total Infusion Time 60 Ketorolac Tromethamine (Toradol) 30 mg IVP STAT STA Stop: 05/31/18 11:57 Last Admin: 05/31/18 12:12 Dose: 30 mg MAR Pain Assessment Document 05/31/18 12:12 EWO (Rec: 05/31/18 12:12 [facility] [id number]) Pain Reassessment Is this a pain reassessment? Yes IVP Administration Document 05/31/18 12:12 EWO (Rec: 05/31/18 12:12 [facility] [id number]) Charges for Administration # of IVP Administrations 1 Morphine Sulfate (Morphine) 4 mg IVP STAT STA Stop: 05/31/18 09:16 Last Admin: 05/31/18 09:27 Dose: 4 mg MAR Pain Assessment Document 05/31/18 09:27 EWO (Rec: 05/31/18 09:27 [facility] [id number]) Pain Reassessment Is this a pain reassessment? No Sleep Is patient sleeping during reassessment? No Presence of Pain Presence of Pain Yes Pain Scale Used Pain Scale Used Numeric Location Left, Right or Bilateral Left Upper or Lower Lower Pain Location Body Site Abdomen Description Description Constant Intensity of Pain at present 8 IVP Administration Document 05/31/18 09:27 EWO (Rec: 05/31/18 09:27 [facility] [id number]) Charges for Administration # of IVP Administrations 1 Morphine Sulfate (Morphine) 4 mg IVP STAT STA Stop: 05/31/18 11:57 Last Admin: 05/31/18 12:12 Dose: 4 mg MAR Pain Assessment Document 05/31/18 12:12 EWO (Rec: 05/31/18 12:12 [facility] [id number]) Pain Reassessment Is this a pain reassessment? Yes Presence of Pain Presence of Pain Yes Pain Scale Used Pain Scale Used Numeric IVP Administration Document 05/31/18 12:12 EWO (Rec: 05/31/18 12:12 [facility] [id number]) Charges for Administration # of IVP Administrations 2 Morphine Sulfate (Morphine) 1 mg IVP Q4H PRN PRN Reason: Pain, severe (8-10) Ondansetron HCl (Zofran Inj) 4 mg IVP STAT STA Stop: 05/31/18 09:15 Last Admin: 05/31/18 09:35 Dose: 4 mg IVP Administration Document 05/31/18 09:35 EW (Rec: 05/31/18 09:36 [facility] [id number]) Charges for Administration # of IVP Administrations 1 Ondansetron HCl (Zofran Inj) 4 mg IVP ONCE ONE Stop: 05/31/18 16:31 Last Admin: 05/31/18 16:47 Dose: 4 mg IVP Administration Document 05/31/18 16:47 [facility] (Rec: 05/31/18 16:47 [id number]) Charges for Administration # of IVP Administrations 1 Pneumococcal Polyvalent Vaccine (Pneumovax 23 Vaccine) 0.5 ml IM .ONCE ONE Stop: 05/31/18 14:37 Last Admin: 05/31/18 16:48 Dose: Immunization Registry Document 05/31/18 16:48 SES (Rec: 05/31/18 16:48 [id number]) Immunization Registry Consent Date 03/13/18 - Scribe Statement The provider has reviewed the documentation as recorded by the Arnold Macias Provider Scribe Attestation: All medical record entries made by the Scribe were at my direction and personally dictated by me. I have reviewed the chart and agree that the record accurately reflects my personal performance of the history, physical exam, medical decision making, and the department course for this patient. I have also personally directed, reviewed, and agree with the discharge instructions and disposition. Disposition/Present on Arrival - Present on Arrival Any Indicators Present on Arrival: No History of DVT/PE: No History of Uncontrolled Diabetes: No Urinary Catheter: No History of Decub. Ulcer: No History Surgical Site Infection Following: None - Disposition Have Diagnosis and Disposition been Completed?: Yes Diagnosis: Diverticulitis Disposition: HOSPITALIZED Disposition Time: 11:00 Condition: STABLE
[2018-05-31 09:35] LABS: BASO # 0.01 K/mm3 (0.0-2.0); BASO % 0.1 % (0.0-3.0); EOS # 0.1 (0.0-0.7); EOS % 1.2 % (1.5-5.0); GRAN # 4.97 (1.4-6.5); GRAN % 65.4 % (50.0-68.0); HEMOGLOBIN 12.9 g/dL (12.0-16.0); LYMPH # 1.5 (1.2-3.4); MEAN CORPUSCULAR HEMOGLOBIN 27.1 pg (25.0-35.0); MEAN CORPUSCULAR HGB CONC 32.7 g/dl (31.0-37.0); MEAN PLATELET VOLUME 10.9 fl (7.0-11.0); MONO % 13.3 % (1.0-6.0); RBC 4.76 10^6/uL (3.5-6.1); RED CELL DISTRIBUTION WIDTH 14.4 % (11.5-14.5); WHITE BLOOD COUNT 7.6 10^3/ul (4.5-11.0)
[2018-05-31 09:42] LABS: ALB/GLOB RATIO 1.3 (1.1-1.8); ALT/SGPT 23 U/L (7-56); AST/SGOT 15 U/L (14-36); BLOOD UREA NITROGEN 8 mg/dL (7-21); CALCIUM 8.8 mg/dL (8.4-10.5); GFR AFRICAN-AMERICAN > 60; GFR NON-AFRICAN AMERICAN > 60; LIPASE 25 U/L (23-300)
[2018-05-31 09:56] LABS: INR 1.16 (0.93-1.08); PROTHROMBIN TIME 12.7 SECONDS (9.4-12.5)
[2018-05-31 09:57] LABS: PARTIAL THROMBOPLASTIN TIME 28.1 Seconds (25.1-36.5)
[2018-05-31 10:29] LABS: URINE APPEARANCE CLEAR (CLEAR); URINE BILIRUBIN NEGATIVE (NEGATIVE); URINE BLOOD MODERATE (NEGATIVE); URINE COLOR YELLOW (YELLOW); URINE GLUCOSE (UA) NEGATIVE (NEGATIVE); URINE LEUKOCYTE ESTERASE NEGATIVE Leu/uL (NEGATIVE); URINE PROTEIN NEGATIVE mg/dL (<30 mg/dL); URINE UROBILINOGEN 0.2 E.U./dL (<1 E.U./dL)
[2018-05-31 10:37] LABS: URINE BACTERIA MANY (NEG); URINE WBC 0 - 2 /hpf (0-6)
--- NOTE | 2018-05-31 10:58 | CT ---
PROCEDURE: CT Abdomen and Pelvis without intravenous contrast HISTORY: lower abd pain - h/o diverticulitis COMPARISON: 12/28/2015 TECHNIQUE: Technique. Contrast dose: Radiation dose: Total exam DLP = mGy-cm. This CT exam was performed using one or more of the following dose reduction techniques: Automated exposure control, adjustment of the mA and/or kV according to patient size, and/or use of iterative reconstruction technique. FINDINGS: LOWER THORAX: Unremarkable. LIVER: Unremarkable. No gross lesion or ductal dilatation. GALLBLADDER AND BILE DUCTS: Unremarkable. PANCREAS: Unremarkable. No gross lesion or ductal dilatation. SPLEEN: Unremarkable. ADRENALS: Unremarkable. No mass. KIDNEYS AND URETERS: Unremarkable. No hydronephrosis. No solid mass. VASCULATURE: Unremarkable. No aortic aneurysm. BOWEL: Sigmoid colon diverticulosis with pericolonic fat infiltration consistent with acute diverticulitis. APPENDIX: Unremarkable. Normal appendix. PERITONEUM: Unremarkable. No free fluid. No free air. LYMPH NODES: Unremarkable. No enlarged lymph nodes. BLADDER: Unremarkable. REPRODUCTIVE: 3.8 centimeter left ovarian cystic lesion for which short-term interval followup is recommended. BONES: No acute fracture. OTHER FINDINGS: None. IMPRESSION: Sigmoid colon diverticulosis with pericolonic fat infiltration consistent with acute diverticulitis. 3.8 centimeter left ovarian cystic lesion for which short-term interval followup is recommended.
[2018-05-31] MEDS ORDERED: metroNIDAZOLE IV 500 mg/100 ml 500 MG/100 ML BAG IVPB STA (11:56)
[2018-05-31] MEDS ORDERED: Ciprofloxacin 400mg/200ml D5W 400 MG/200 ML BAG IVPB STA (11:56)
[2018-05-31] MEDS ORDERED: Morphine 2 mg/ml ISec IVP PRN (12:26)
[2018-05-31] MEDS ORDERED: Sodium Chloride 0.9% 1,000 ML IV SCH (12:30)
[2018-05-31 14:36] VITALS: BMI 36.6
[2018-05-31] MEDS ORDERED: Pneumococcal 23-Valent Vaccine IM ONE (14:36)
--- NOTE | 2018-05-31 15:07 | CP.PCM.CON ---
History of Present Illness - History of Present Illness History of Present Illness: General Surgery consult note for Dr. Ron Consulted for evaluation of diverticulitis 47 yr old female presents with 2 weeks of intermittent abdominal pain, 2 episodes of black stool last week and worsening lower abdominal pain over the past 24 hours. Patient endorses nausea but no vomiting. she endorses a temperature of 100 yesterday but no chills. She denies shasha blood in stool. Loose BMs are the norm for this patient. She states that she believes she had a colonoscopy after her last bout of diverticulitis but states that this was at [place] and does not remember what the results were/ believes they were normal. PMH: diverticulitis, GERD PSH: partial hysterectomy, left hip replacement, right knee meniscus surgery Social: vape pen use, no alcohol Allergies: ciprofloxacin, flagyl Past Patient History - Infectious Disease Hx of Infectious Diseases: None - Tetanus Immunizations Tetanus Immunization: Up to Date - Past Social History Smoking Status: Never Smoked - CARDIAC Hx Cardiac Disorders: Yes Hx Angina: Yes - PULMONARY Hx Respiratory Disorders: No - NEUROLOGICAL Hx Neurological Disorder: No - HEENT Hx HEENT Problems: No - RENAL Hx Chronic Kidney Disease: No - ENDOCRINE/METABOLIC Hx Endocrine Disorders: No - HEMATOLOGICAL/ONCOLOGICAL Hx Blood Disorders: No - INTEGUMENTARY Hx Dermatological Problems: No - MUSCULOSKELETAL/RHEUMATOLOGICAL Hx Musculoskeletal Disorders: No Hx Falls: No Hx Spinal Stenosis: No - GASTROINTESTINAL Hx Gastrointestinal Disorders: Yes Hx Diverticulitis: Yes Hx Gastroesophageal Reflux: Yes - GENITOURINARY/GYNECOLOGICAL Hx Genitourinary Disorders: No - PSYCHIATRIC Hx Psychophysiologic Disorder: Yes Hx Anxiety: Yes Hx Substance Use: No - SURGICAL HISTORY Hx Surgeries: Yes Hx Hysterectomy: Yes (partial) Other/Comment: left hip replacement, torn meniscus sx - ANESTHESIA Hx Anesthesia: Yes Hx Anesthesia Reactions: No Hx Malignant Hyperthermia: No Meds Allergies/Adverse Reactions: Allergies Allergy/AdvReac Type Severity Reaction Status Date / Time ciprofloxacin [From Cipro] AdvReac Delusional Verified 05/31/18 14:06 metronidazole [From Flagyl] AdvReac delusional Verified 05/31/18 14:06 - Medications Medications: Current Medications Sodium Chloride (Sodium Chloride 0.9%) 1,000 mls @ 100 mls/hr IV .Q10H GALLO Stop: 06/01/18 08:29 Piperacillin Sod/Tazobactam Sod (Zosyn 3.375 In Ns 100ml) 100 mls @ 200 mls/hr IVPB Q6 GALLO PRN Reason: Protocol Stop: 06/01/18 00:29 Morphine Sulfate (Morphine) 1 mg IVP Q4H PRN PRN Reason: Pain, severe (8-10) Ondansetron HCl (Zofran Inj) 4 mg IVP Q6H PRN PRN Reason: Nausea/Vomiting Last Admin: 05/31/18 13:20 Dose: 4 mg Physical Exam - Constitutional Appears: Well, Non-toxic, No Acute Distress - Head Exam Head Exam: ATRAUMATIC, NORMOCEPHALIC - ENT Exam ENT Exam: Mucous Membranes Moist - Respiratory Exam Respiratory Exam: NORMAL BREATHING PATTERN - GI/Abdominal Exam GI & Abdominal Exam: Soft, Tenderness. absent: Distended, Firm, Guarding, Rebound, Rigid Additional comments: RUQ, LLQ and RLQ mild tenderness - Extremities Exam Extremities exam: Positive for: full ROM, pedal pulses present. Negative for: calf tenderness, pedal edema, tenderness - Back Exam Back exam: absent: CVA tenderness (L), CVA tenderness (R) - Neurological Exam Neurological exam: Alert, Oriented x3 - Psychiatric Exam Psychiatric exam: Normal Affect, Normal Mood - Skin Skin Exam: Dry, Intact, Normal Color, Warm Results - Vital Signs Recent Vital Signs: Last Vital Signs Temp 98.9 F 05/31/18 14:09 Pulse 78 05/31/18 14:09 Resp 18 05/31/18 14:09 BP 128/79 05/31/18 14:09 Pulse Ox 99 05/31/18 12:15 - Labs Result Diagrams: 05/31/18 09:00 05/31/18 09:00 Assessment & Plan - Assessment and Plan (Free Text) Assessment: 47 yr old female with mild diverticulitis Plan: continue Zosyn keep patient NPO continue zofran for nausea continue morphine PRN for pain Continue fluid resuscitation Will follow up with Dr. Moulton for past colonoscopy results and current recs Discussed plan with Dr. Asaf Ahn PGY1
--- NOTE | 2018-05-31 17:03 | CP.PCM.CON ---
History of Present Illness - History of Present Illness History of Present Illness: GI Consult Note for Dr. Karl Vegas, PGY-3 IM This is a 47 yo with PMH of prior episodes of diverticulitis, GERD, OA, and ovarian mass who presents with complaint of intermittent lower abdominal pain x2 weeks, with acutely worsening pain beginning last night and persisting into today. As per pt, pain intermittent but manageable for last 2 week, was taking Motrin daily for pain control. Last night, pain began, progressively worsened, described as sharp pain, not improved with motrin/BM, worse with movement. Denies diarrhea, BRBPR, dysuria, hematuria, emesis, cough, chest pain, shortness of breat; admits to nausea, subjective fever. Also reports 2x black BM approx 1 week ago, self-resolved with no further occurrence. Other than motrin, not on any scheduled or consistent OTC meds. All other ROS in 12- system review negative. CT abd/pelvis w/o contrast on admission concerning for sigmoid diverticulitis. PMH: as above PSH: partial hysterectomy, left hip replacement, right knee meniscus surgery Fam Hx: Mother (HTN, Ovarian Cyst), Sister (lung and colon ca) Soc Hx: Former tobacco user (cigarettes, 1/2 ppd ~10 yrs, quit ~1 yr ago), active vape user, social etoh, denies illicits/IVDA PMD: Condo Review of Systems - Review of Systems All systems: reviewed and no additional remarkable complaints except (as per HPI ) Past Patient History - Infectious Disease Hx of Infectious Diseases: None - Tetanus Immunizations Tetanus Immunization: Up to Date - Past Social History Smoking Status: Never Smoked - CARDIAC Hx Cardiac Disorders: Yes Hx Angina: Yes - PULMONARY Hx Respiratory Disorders: No - NEUROLOGICAL Hx Neurological Disorder: No - HEENT Hx HEENT Problems: No - RENAL Hx Chronic Kidney Disease: No - ENDOCRINE/METABOLIC Hx Endocrine Disorders: No - HEMATOLOGICAL/ONCOLOGICAL Hx Blood Disorders: No - INTEGUMENTARY Hx Dermatological Problems: No - MUSCULOSKELETAL/RHEUMATOLOGICAL Hx Musculoskeletal Disorders: No Hx Falls: No Hx Spinal Stenosis: No - GASTROINTESTINAL Hx Gastrointestinal Disorders: Yes Hx Diverticulitis: Yes Hx Gastroesophageal Reflux: Yes - GENITOURINARY/GYNECOLOGICAL Hx Genitourinary Disorders: No - PSYCHIATRIC Hx Psychophysiologic Disorder: Yes Hx Anxiety: Yes Hx Substance Use: No - SURGICAL HISTORY Hx Surgeries: Yes Hx Hysterectomy: Yes (partial) Other/Comment: left hip replacement, torn meniscus sx - ANESTHESIA Hx Anesthesia: Yes Hx Anesthesia Reactions: No Hx Malignant Hyperthermia: No Meds Allergies/Adverse Reactions: Allergies Allergy/AdvReac Type Severity Reaction Status Date / Time ciprofloxacin [From Cipro] AdvReac Delusional Verified 05/31/18 14:06 metronidazole [From Flagyl] AdvReac delusional Verified 05/31/18 14:06 - Medications Medications: Current Medications Sodium Chloride (Sodium Chloride 0.9%) 1,000 mls @ 100 mls/hr IV .Q10H GALLO Stop: 06/01/18 08:29 Piperacillin Sod/Tazobactam Sod (Zosyn 3.375 In Ns 100ml) 100 mls @ 200 mls/hr IVPB Q6 GALLO PRN Reason: Protocol Stop: 06/01/18 00:29 Morphine Sulfate (Morphine) 1 mg IVP Q4H PRN PRN Reason: Pain, severe (8-10) Ondansetron HCl (Zofran Inj) 4 mg IVP Q6H PRN PRN Reason: Nausea/Vomiting Last Admin: 05/31/18 13:20 Dose: 4 mg Physical Exam - Constitutional Appears: Non-toxic, In Acute Distress (due to pain/discomfort), Other ( Uncomfortable) - Head Exam Head Exam: ATRAUMATIC, NORMAL INSPECTION, NORMOCEPHALIC - Eye Exam Eye Exam: EOMI, Normal appearance. absent: Conjunctival injection, Scleral icterus Pupil Exam: absent: Fixed, Irregular - ENT Exam ENT Exam: Mucous Membranes Dry - Neck Exam Neck exam: Positive for: Normal Inspection - Respiratory Exam Respiratory Exam: Clear to Auscultation Bilateral, NORMAL BREATHING PATTERN. absent: Accessory Muscle Use, Chest Wall Tenderness, Decreased Breath Sounds, Rales, Rhonchi, Wheezes - Cardiovascular Exam Cardiovascular Exam: REGULAR RHYTHM, RRR, +S1, +S2. absent: Bradycardia, Tachycardia, Irregular Rhythm, JVD, +S4 - GI/Abdominal Exam GI & Abdominal Exam: Guarding, Hyperactive Bowel Sounds, Soft, Tenderness (most acutely tender to palpation at LLQ, mild tenderness to palpation epigastrically and at LUQ, no L flank or CVA tenderness). absent: Diminished Bowel Sounds, Distended, Firm, Hypoactive Bowel Sounds, Normal Bowel Sounds, Rigid - Extremities Exam Extremities exam: Positive for: normal capillary refill, normal inspection, pedal pulses present. Negative for: calf tenderness, joint swelling, pedal edema, tenderness - Back Exam Back exam: absent: CVA tenderness (L) - Neurological Exam Additional comments: awake and alert, moving all extremities spontaneously, following all commands appropriately - Psychiatric Exam Psychiatric exam: Normal Affect, Normal Mood - Skin Skin Exam: Dry, Intact, Normal Color, Warm Results - Vital Signs Recent Vital Signs: Last Vital Signs Temp 98.9 F 05/31/18 14:09 Pulse 78 05/31/18 14:09 Resp 18 05/31/18 14:09 BP 128/79 05/31/18 14:09 Pulse Ox 97 05/31/18 14:00 - Labs Result Diagrams: 05/31/18 09:00 05/31/18 09:00 Assessment & Plan - Assessment and Plan (Free Text) Assessment: This is a 47 yo with PMH of prior episodes of diverticulitis, GERD, OA, and ovarian mass who presents with complaint of intermittent lower abdominal pain x2 weeks, with acutely worsening pain beginning last night and persisting into today. GI was consulted for acute diverticulitis. Plan: Acute diverticulitis in setting of multiple prior episodes of diverticulitis OA GERD x2 Melanotic stools in setting of chronic NSAID use x2 weeks -Concerning for possible upper GI bleed/ulcer due to melanotic stool x2 while using NSAIDs, pending EGD tomorrow as per Dr Barajas -NPO after midnight, okay for Ice chips prior to Midnight -Zofran for nausea control -Surgery also consulted, appreciate their input -No plans for Colonoscopy at this time given acute diverticulitis, increased risk of perforation -Counseled pt on NSAID avoidance -IVF for dehydration -Flagyl and Cipro IV x1 each in ED, now on IV Zosyn as per primary team Patient seen, reviewed, and discussed with attending, Dr Barajas
[2018-05-31] MEDS ORDERED: Morphine 2 mg/2 mL syringe IVP PRN (17:36)
[2018-05-31] MEDS: Piperacillin/Tazobact 3.375 gm 100 ML IVPB SCH ×2 (18:26→23:11)
[2018-06-01] MEDS ORDERED: Piperacillin/Tazobact 3.375 gm 100 ML IVPB SCH ×2 (00:01→06:00)
[2018-06-01] MEDS: Piperacillin/Tazobact 3.375 gm 100 ML IVPB SCH ×3 (05:25→17:04)
[2018-06-01 06:55] LABS: BASO # 0.02 K/mm3 (0.0-2.0); BASO % 0.3 % (0.0-3.0); EOS # 0.2 (0.0-0.7); EOS % 2.6 % (1.5-5.0); GRAN # 3.58 (1.4-6.5); GRAN % 53.9 % (50.0-68.0); HEMOGLOBIN 11.5 g/dL (12.0-16.0); LYMPH # 2.1 (1.2-3.4); LYMPH % 31.7 % (22.0-35.0); MEAN CELL VOLUME 82.9 fl (80.0-105.0); MEAN CORPUSCULAR HEMOGLOBIN 26.6 pg (25.0-35.0); MEAN PLATELET VOLUME 10.8 fl (7.0-11.0); MONO # 0.8 (0.1-0.6); MONO % 11.5 % (1.0-6.0); RBC 4.33 10^6/uL (3.5-6.1); RED CELL DISTRIBUTION WIDTH 14.2 % (11.5-14.5); WHITE BLOOD COUNT 6.6 10^3/ul (4.5-11.0)
[2018-06-01 07:07] LABS: ALB/GLOB RATIO 1.2 (1.1-1.8); ALBUMIN 3.2 g/dL (3.0-4.8); ALT/SGPT 15 U/L (7-56); AST/SGOT 15 U/L (14-36); BLOOD UREA NITROGEN 6 mg/dL (7-21); CALCIUM 8.4 mg/dL (8.4-10.5); GFR AFRICAN-AMERICAN > 60; GFR NON-AFRICAN AMERICAN > 60
[2018-06-01] MEDS ORDERED: Propofol 10 mg/ml Inj (20 ML) ONE ×2 (07:59→08:04)
[2018-06-01] MEDS ORDERED: Sodium Chloride 0.9% 1,000 ML IV SCH (08:00)
--- NOTE | 2018-06-01 08:12 | CP.PCM.HP ---
<Soham Her - Last Filed: 06/01/18 08:05> History of Present Illness - History of Present Illness History of Present Illness: Medicine H&P for Dr. Alanis's service - Danny Her PGY3 HPI: Patient is a 47yo female with past medical history of diverticulitis, GERD , osteoarthritis, and ovarian mass who presented to [facility] with c/o abdominal pain. She reported that her pain had been ongoing for the past 2 weeks, intermittent and had acutely worsened the night prior to presentation. She reported taking motrin daily for pain control which provided minimal relief. Described her pain as sharp and worsened with movement. She had also described 2 dark stools approximately 1 week prior. Otherwise, she denied chest pain, palpitations, SOB, vomiting, fever, chills, cough, focal weakness, numbness, tingling, hematemesis, hematochezia, sick contacts. CT abd/pelvis w/o contrast on admission revealed acute sigmoid diverticulitis. 12point ROS as per above otherwise negative PMH: as stated above PSH: partial hysterectomy, left hip replacement, right knee meniscus surgery Family Hx: Mother (HTN, Ovarian Cyst), Sister (lung and colon ca) Social Hx: Former tobacco user (cigarettes, 1/2 ppd ~10 yrs, quit ~1 yr ago), active vape user, social etoh, denies illicits/IVDA PMD: Condo Present on Admission - Present on Admission Any Indicators Present on Admission: No Past Patient History - Infectious Disease Hx of Infectious Diseases: None - Tetanus Immunizations Tetanus Immunization: Up to Date - Past Social History Smoking Status: Never Smoked - CARDIAC Hx Cardiac Disorders: Yes Hx Angina: Yes - PULMONARY Hx Respiratory Disorders: No - NEUROLOGICAL Hx Neurological Disorder: No - HEENT Hx HEENT Problems: No - RENAL Hx Chronic Kidney Disease: No - ENDOCRINE/METABOLIC Hx Endocrine Disorders: No - HEMATOLOGICAL/ONCOLOGICAL Hx Blood Disorders: No - INTEGUMENTARY Hx Dermatological Problems: No - MUSCULOSKELETAL/RHEUMATOLOGICAL Hx Musculoskeletal Disorders: No Hx Falls: No - GASTROINTESTINAL Hx Gastrointestinal Disorders: Yes Hx Diverticulitis: Yes Hx Gastroesophageal Reflux: Yes - GENITOURINARY/GYNECOLOGICAL Hx Genitourinary Disorders: No - PSYCHIATRIC Hx Psychophysiologic Disorder: Yes Hx Anxiety: Yes Hx Substance Use: No - SURGICAL HISTORY Hx Hysterectomy: Yes (partial) Other/Comment: left hip replacement, torn meniscus sx - ANESTHESIA Hx Anesthesia: Yes Hx Anesthesia Reactions: No Hx Malignant Hyperthermia: No Meds Allergies/Adverse Reactions: Allergies Allergy/AdvReac Type Severity Reaction Status Date / Time ciprofloxacin [From Cipro] AdvReac Delusional Verified 05/31/18 14:06 metronidazole [From Flagyl] AdvReac delusional Verified 05/31/18 14:06 Physical Exam - Constitutional Appears: No Acute Distress - Head Exam Head Exam: ATRAUMATIC, NORMAL INSPECTION, NORMOCEPHALIC - Eye Exam Eye Exam: EOMI Pupil Exam: PERRL - ENT Exam ENT Exam: Mucous Membranes Moist - Neck Exam Neck exam: Positive for: Normal Inspection - Respiratory Exam Respiratory Exam: Clear to Auscultation Bilateral. absent: Rales, Rhonchi, Wheezes - Cardiovascular Exam Cardiovascular Exam: RRR, +S1, +S2. absent: Gallop, Rubs - GI/Abdominal Exam GI & Abdominal Exam: Rebound, Soft, Tenderness. absent: Distended, Firm, Guarding, Hernia, Rigid - Neurological Exam Neurological exam: Alert, CN II-XII Intact, Oriented x3 - Psychiatric Exam Psychiatric exam: Normal Affect, Normal Mood - Skin Skin Exam: Dry, Intact, Normal Color, Warm Results - Vital Signs Recent Vital Signs: Last Vital Signs Temp 98.8 F 06/01/18 06:00 Pulse 87 06/01/18 06:00 Resp 16 06/01/18 06:00 BP 105/72 06/01/18 06:00 Pulse Ox 96 06/01/18 06:00 - Labs Result Diagrams: 06/01/18 06:00 06/01/18 06:00 Labs: Laboratory Results - last 24 hr 06/01/18 06/01/18 06:00 06:00 WBC 6.6 RBC 4.33 Hgb 11.5 L Hct 35.9 L MCV 82.9 MCH 26.6 MCHC 32.0 RDW 14.2 Plt Count 175 MPV 10.8 Gran % 53.9 Lymph % (Auto) 31.7 Harper % (Auto) 11.5 H Eos % (Auto) 2.6 Baso % (Auto) 0.3 Gran # 3.58 Lymph # (Auto) 2.1 Harper # (Auto) 0.8 H Eos # (Auto) 0.2 Baso # (Auto) 0.02 Sodium 140 Potassium 3.9 Chloride 107 Carbon Dioxide 24 Anion Gap 13 BUN 6 L Creatinine 0.7 Est GFR ( Amer) > 60 Est GFR (Non-Af Amer) > 60 Random Glucose 85 Calcium 8.4 Total Bilirubin 0.4 AST 15 ALT 15 Alkaline Phosphatase 46 Total Protein 5.9 Albumin 3.2 Globulin 2.7 Albumin/Globulin Ratio 1.2 Assessment & Plan - Assessment and Plan (Free Text) Plan: 47yo female with history of diverticulitis, osteoarthritis and GERD presents with c/o intermittent abdominal pain for past 2 weeks secondary to acute diverticulitis 1. Acute diverticulitis 2. Hx of GERD 3. Hx of osteoarthritis -Patient is currently on Zosyn for antibiotic coverage given her allergy to cipro/flagyl. -We will continue with IVF hydration, pain control and zofran for nausea/ vomiting -GI has been consulted and she is scheduled for an EGD this morning due to concern of melanotic stool/GI bleed -Surgery has also been consulted for evaluation; no surgical intervention anticipated at this time -CT abd/pelvis has been reviewed -NPO diet -ID consulted for abx management -afebrile, no leukocytosis Patient seen and case discussed/reviewed with attending, Dr. Alanis <Mariusz Alanis S - Last Filed: 06/01/18 18:53> Results - Vital Signs Recent Vital Signs: Last Vital Signs Temp 99 F 06/01/18 13:52 Pulse 84 06/01/18 13:52 Resp 14 06/01/18 13:52 BP 108/59 L 06/01/18 13:52 Pulse Ox 96 06/01/18 13:52 - Labs Result Diagrams: 06/01/18 06:00 06/01/18 06:00 Labs: Laboratory Results - last 24 hr 06/01/18 06/01/18 06:00 06:00 WBC 6.6 RBC 4.33 Hgb 11.5 L Hct 35.9 L MCV 82.9 MCH 26.6 MCHC 32.0 RDW 14.2 Plt Count 175 MPV 10.8 Gran % 53.9 Lymph % (Auto) 31.7 Harper % (Auto) 11.5 H Eos % (Auto) 2.6 Baso % (Auto) 0.3 Gran # 3.58 Lymph # (Auto) 2.1 Harper # (Auto) 0.8 H Eos # (Auto) 0.2 Baso # (Auto) 0.02 Sodium 140 Potassium 3.9 Chloride 107 Carbon Dioxide 24 Anion Gap 13 BUN 6 L Creatinine 0.7 Est GFR ( Amer) > 60 Est GFR (Non-Af Amer) > 60 Random Glucose 85 Calcium 8.4 Total Bilirubin 0.4 AST 15 ALT 15 Alkaline Phosphatase 46 Total Protein 5.9 Albumin 3.2 Globulin 2.7 Albumin/Globulin Ratio 1.2 Assessment & Plan - Assessment and Plan (Free Text) Plan: Pt seen and examined. I have reviewed the note of the medical data entry clerk and agree with it. I have discussed the assessment and plan with the resident. I have reviewed the patient's labs and medications.Pt seen by GI and will get colonscopy. Spoke to Dr Barajas from GI. She is on IV Abx and IVF, will continue. She is NPO. Her pain is controlled.
--- NOTE | 2018-06-01 08:30 | CP.PCM.PN ---
Subjective - Date & Time of Evaluation Date of Evaluation: 06/01/18 Time of Evaluation: 06:00 - Subjective Subjective: Patient seen and evaluated bedside. No acute issues overnight. Patient states abdominal pain is the same as yesterday, patient is still NPO. Patient denies any nausea, vomiting, fever, chills, chest pain, SOB or any other complaints at this time. Objective - Vital Signs/Intake and Output Vital Signs (last 24 hours): Temp Pulse Resp BP Pulse Ox 98 F 77 14 143/76 100 06/01/18 08:08 06/01/18 08:08 06/01/18 08:08 06/01/18 08:08 06/01/18 08:08 Intake and Output: 06/01/18 06/01/18 06:59 18:59 Intake Total 240 Balance 240 - Medications Medications: Current Medications Sodium Chloride (Sodium Chloride 0.9%) 1,000 mls @ 100 mls/hr IV .Q10H GALLO Stop: 06/01/18 08:29 Last Admin: 06/01/18 00:51 Dose: Not Given Piperacillin Sod/Tazobactam Sod (Zosyn 3.375 In Ns 100ml) 100 mls @ 200 mls/hr IVPB Q6 GALLO PRN Reason: Protocol Stop: 06/07/18 18:01 Last Admin: 06/01/18 05:25 Dose: 200 mls/hr Sodium Chloride (Sodium Chloride 0.9%) 1,000 mls @ 100 mls/hr IV .Q10H GALLO Morphine Sulfate (Morphine) 1 mg IVP Q4H PRN PRN Reason: Pain, severe (8-10) Last Admin: 05/31/18 18:48 Dose: 1 mg Ondansetron HCl (Zofran Inj) 4 mg IVP Q6H PRN PRN Reason: Nausea/Vomiting Last Admin: 05/31/18 13:20 Dose: 4 mg - Labs Labs: 06/01/18 06:00 06/01/18 06:00 PT 12.7 SECONDS (9.4-12.5) H 05/31/18 09:00 INR 1.16 (0.93-1.08) H 05/31/18 09:00 APTT 28.1 Seconds (25.1-36.5) 05/31/18 09:00 - Constitutional Appears: Well, Non-toxic, No Acute Distress - Head Exam Head Exam: ATRAUMATIC, NORMAL INSPECTION, NORMOCEPHALIC - Eye Exam Eye Exam: EOMI, Normal appearance - ENT Exam ENT Exam: Mucous Membranes Moist - Respiratory Exam Respiratory Exam: Clear to Ausculation Bilateral, NORMAL BREATHING PATTERN - Cardiovascular Exam Cardiovascular Exam: REGULAR RHYTHM, +S1, +S2 - GI/Abdominal Exam GI & Abdominal Exam: Soft, Tenderness. absent: Distended, Firm, Guarding, Rigid - Extremities Exam Extremities Exam: absent: Pedal Edema - Neurological Exam Neurological Exam: Alert, Awake, Oriented x3 - Skin Skin Exam: Normal Color Assessment and Plan - Assessment and Plan (Free Text) Assessment: 47 yr old female with mild diverticulitis Plan: -continue Zosyn -started on clear liquids per GI -continue zofran for nausea -continue morphine PRN for pain -Continue fluid resuscitation -EGD performed in AM with biopsies taken from antrum, wall and GE junction. Normal duodenum. 1cm hiatal hernia. Chronic gastritis. -Will follow up with Dr. Moulton for past colonoscopy results and additional recs -Discussed plan with Dr. Ron -further recommendations as per Dr. Dr. Asaf Feliz PGY-2
--- NOTE | 2018-06-01 11:25 | CP.PCM.CON ---
History of Present Illness - History of Present Illness History of Present Illness: 47 year old female with PMH of diverticulitis (left sided), S/P right knee meniscus surgery, S/P left hip replacement, S/P partial hysterectomy [place] [facility] [place] of worsening left lower abdominal pain over the past day, which started 2 weeks ago. The pain is described as sharp and intermittent. She had nausea but no vomiting, had low grade fevers and had some loose bowel movement as well. She denies eating anything out of the ordinary and has been avoiding nuts because of her history of diverticulitis. She denies headache or dizziness , no chest pain, no SOB, no cough or rhinorrhea, no dysuria, no bleeding. CT A/ P showed acute sigmoid diverticulitis. Infectious diseases consult is requested to further evaluate and manage. Review of Systems - Review of Systems All systems: reviewed and no additional remarkable complaints except (as per HPI ) Past Patient History - Infectious Disease Hx of Infectious Diseases: None - Tetanus Immunizations Tetanus Immunization: Up to Date - Past Social History Smoking Status: Never Smoked - CARDIAC Hx Cardiac Disorders: Yes Hx Angina: Yes - PULMONARY Hx Respiratory Disorders: No - NEUROLOGICAL Hx Neurological Disorder: No - HEENT Hx HEENT Problems: No - RENAL Hx Chronic Kidney Disease: No - ENDOCRINE/METABOLIC Hx Endocrine Disorders: No - HEMATOLOGICAL/ONCOLOGICAL Hx Blood Disorders: No - INTEGUMENTARY Hx Dermatological Problems: No - MUSCULOSKELETAL/RHEUMATOLOGICAL Hx Musculoskeletal Disorders: No Hx Falls: No - GASTROINTESTINAL Hx Gastrointestinal Disorders: Yes Hx Diverticulitis: Yes Hx Gastroesophageal Reflux: Yes - GENITOURINARY/GYNECOLOGICAL Hx Genitourinary Disorders: No - PSYCHIATRIC Hx Psychophysiologic Disorder: Yes Hx Anxiety: Yes Hx Substance Use: No - SURGICAL HISTORY Hx Hysterectomy: Yes (partial) Other/Comment: left hip replacement, torn meniscus sx - ANESTHESIA Hx Anesthesia: Yes Hx Anesthesia Reactions: No Hx Malignant Hyperthermia: No Meds Allergies/Adverse Reactions: Allergies Allergy/AdvReac Type Severity Reaction Status Date / Time ciprofloxacin [From Cipro] AdvReac Delusional Verified 05/31/18 14:06 metronidazole [From Flagyl] AdvReac delusional Verified 05/31/18 14:06 - Medications Medications: Current Medications Sodium Chloride (Sodium Chloride 0.9%) 1,000 mls @ 100 mls/hr IV .Q10H GALLO Stop: 06/01/18 08:29 Piperacillin Sod/Tazobactam Sod (Zosyn 3.375 In Ns 100ml) 100 mls @ 200 mls/hr IVPB Q6 GALLO PRN Reason: Protocol Stop: 06/07/18 18:01 Last Admin: 05/31/18 23:11 Dose: 200 mls/hr Morphine Sulfate (Morphine) 1 mg IVP Q4H PRN PRN Reason: Pain, severe (8-10) Last Admin: 05/31/18 18:48 Dose: 1 mg Ondansetron HCl (Zofran Inj) 4 mg IVP Q6H PRN PRN Reason: Nausea/Vomiting Last Admin: 05/31/18 13:20 Dose: 4 mg Physical Exam - Constitutional Appears: Non-toxic - Head Exam Head Exam: NORMAL INSPECTION - ENT Exam ENT Exam: Mucous Membranes Moist - Neck Exam Neck exam: Negative for: Lymphadenopathy, Meningismus - Respiratory Exam Respiratory Exam: Decreased Breath Sounds. absent: Rales - Cardiovascular Exam Cardiovascular Exam: +S1, +S2 - GI/Abdominal Exam GI & Abdominal Exam: Soft, Tenderness (LLQ area). absent: Distended, Firm, Guarding, Rebound, Rigid Results - Vital Signs Recent Vital Signs: Last Vital Signs Temp 98.9 F 05/31/18 14:09 Pulse 78 05/31/18 14:09 Resp 18 05/31/18 14:09 BP 128/79 05/31/18 14:09 Pulse Ox 97 05/31/18 14:00 - Labs Result Diagrams: 06/01/18 06:00 06/01/18 06:00 Assessment & Plan - Assessment and Plan (Free Text) Plan: Assessment Acute sigmoid diverticulitis in this patient with history of diverticulitis S/P right knee meniscus surgery S/P left hip replacement S/P partial hysterectomy Plan Started Zosyn and will follow up blood cx; will monitor advancement of her diet and may switch to PO antibiotics once she is on a full solid diet will monitor clinically
[2018-06-01 21:52] VITALS: O2SAT 97
[2018-06-02] MEDS: Piperacillin/Tazobact 3.375 gm 100 ML IVPB SCH ×2 (03:30→06:15)
[2018-06-02 06:57] LABS: BASO # 0.02 K/mm3 (0.0-2.0); BASO % 0.3 % (0.0-3.0); EOS # 0.2 (0.0-0.7); EOS % 2.3 % (1.5-5.0); GRAN # 2.99 (1.4-6.5); GRAN % 46.6 % (50.0-68.0); HEMOGLOBIN 12.2 g/dL (12.0-16.0); LYMPH # 2.7 (1.2-3.4); LYMPH % 41.6 % (22.0-35.0); MEAN CELL VOLUME 83.2 fl (80.0-105.0); MEAN CORPUSCULAR HEMOGLOBIN 26.9 pg (25.0-35.0); MEAN CORPUSCULAR HGB CONC 32.4 g/dl (31.0-37.0); MEAN PLATELET VOLUME 10.9 fl (7.0-11.0); MONO # 0.6 (0.1-0.6); MONO % 9.2 % (1.0-6.0); RBC 4.53 10^6/uL (3.5-6.1); RED CELL DISTRIBUTION WIDTH 14.3 % (11.5-14.5); WHITE BLOOD COUNT 6.4 10^3/ul (4.5-11.0)
[2018-06-02 07:10] LABS: ALB/GLOB RATIO 1.3 (1.1-1.8); ALBUMIN 3.6 g/dL (3.0-4.8); ALT/SGPT 14 U/L (7-56); AST/SGOT 14 U/L (14-36); BLOOD UREA NITROGEN 3 mg/dL (7-21); CALCIUM 8.7 mg/dL (8.4-10.5); GFR AFRICAN-AMERICAN > 60; GFR NON-AFRICAN AMERICAN > 60
--- NOTE | 2018-06-02 07:55 | CP.PCM.PN ---
<Christopher Vegas - Last Filed: 06/02/18 15:02> Subjective - Date & Time of Evaluation Date of Evaluation: 06/02/18 Time of Evaluation: 08:50 - Subjective Subjective: GI Progress Note for Dr. Karl Vegas, PGY-3 IM Patient seen and examined at bedside. S/p EGD yesterday, no acute findings of ulceration or bleeding. Overall, feels better today; minimal abdominal pain ( only on palpation) and tolerating soft diet without issue. Reports ready to go home. Understands to avoid using further NSAIDs for stomach pain. Objective - Vital Signs/Intake and Output Vital Signs (last 24 hours): Temp Pulse Resp BP Pulse Ox 98.8 F 83 16 123/77 97 06/01/18 21:51 06/01/18 21:51 06/01/18 21:51 06/01/18 21:51 06/01/18 21:51 Intake and Output: 06/02/18 06/02/18 06:59 18:59 Intake Total 880 Balance 880 - Medications Medications: Current Medications Piperacillin Sod/Tazobactam Sod (Zosyn 3.375 In Ns 100ml) 100 mls @ 200 mls/hr IVPB Q6 GALLO PRN Reason: Protocol Stop: 06/07/18 18:01 Last Admin: 06/02/18 06:15 Dose: 200 mls/hr Sodium Chloride (Sodium Chloride 0.9%) 1,000 mls @ 100 mls/hr IV .Q10H GALLO Last Admin: 06/02/18 07:13 Dose: 100 mls/hr Morphine Sulfate (Morphine) 1 mg IVP Q4H PRN PRN Reason: Pain, severe (8-10) Last Admin: 05/31/18 18:48 Dose: 1 mg Ondansetron HCl (Zofran Inj) 4 mg IVP Q6H PRN PRN Reason: Nausea/Vomiting Last Admin: 05/31/18 13:20 Dose: 4 mg - Labs Labs: 06/02/18 06:40 06/02/18 06:40 PT 12.7 SECONDS (9.4-12.5) H 05/31/18 09:00 INR 1.16 (0.93-1.08) H 05/31/18 09:00 APTT 28.1 Seconds (25.1-36.5) 05/31/18 09:00 - Additional Findings Additional findings: - Constitutional Appears: Non-toxic, No Acute Distress - Head Exam Head Exam: ATRAUMATIC, NORMAL INSPECTION, NORMOCEPHALIC - Eye Exam Eye Exam: EOMI, Normal appearance. absent: Conjunctival injection, Scleral icterus Pupil Exam: absent: Fixed, Irregular - ENT Exam ENT Exam: Mucous Membranes Moist (finished meal approximately 20 min prior to exam) - Neck Exam Neck exam: Positive for: Normal Inspection - Respiratory Exam Respiratory Exam: Clear to Auscultation Bilateral, NORMAL BREATHING PATTERN. absent: Accessory Muscle Use, Chest Wall Tenderness, Decreased Breath Sounds, Rales, Rhonchi, Wheezes - Cardiovascular Exam Cardiovascular Exam: REGULAR RHYTHM, RRR, +S1, +S2. absent: Bradycardia, Tachycardia, Irregular Rhythm, JVD, +S4 - GI/Abdominal Exam GI & Abdominal Exam: Soft, Tenderness (mildly tender at LLQ with deep palpation only), Normal Bowel Sounds. absent: Diminished Bowel Sounds, Distended, Firm, Hypoactive Bowel Sounds, Rigid - Extremities Exam Extremities exam: Positive for: normal capillary refill, normal inspection, pedal pulses present. Negative for: calf tenderness, joint swelling, pedal edema, tenderness - Back Exam Back exam: absent: CVA tenderness (L) - Neurological Exam awake and alert, moving all extremities spontaneously, following all commands appropriately - Psychiatric Exam Psychiatric exam: Normal Affect, Normal Mood - Skin Skin Exam: Dry, Intact, Normal Color, Warm Assessment and Plan - Assessment and Plan (Free Text) Assessment: This is a 47 yo with PMH of prior episodes of diverticulitis, GERD, OA, and ovarian mass who presents with complaint of intermittent lower abdominal pain x2 weeks, with acutely worsening pain beginning last night and persisting into today. GI was consulted for acute diverticulitis. Plan: Acute diverticulitis in setting of multiple prior episodes of diverticulitis OA GERD x2 Melanotic stools in setting of chronic NSAID use x2 weeks -EGD negative for Upper GI bleed, no ulcerations appreciated (please see endoscopic report for further details) -Tolerated soft diet well, advance further as tolerated, reviewed appropriate dietary advancement and foods to avoid with patient -Surgery also consulted, appreciate their input; no surgical interventions at this time, can consider outpatient elective surgery for removal of diverticular colon, but needs colonoscopy prior to possible surgery -No plans for Colonoscopy at this time given acute diverticulitis, increased risk of perforation, follow up as outpatient for colonoscopy in 6-8 weeks -Counseled pt on NSAID avoidance -Completed course of Zosyn, to be discharged on Augmentin BID as per primary team -Cleared for discharge from GI standpoint Patient seen, reviewed, and discussed with attending, Dr Barajas <Beatris Barajas V - Last Filed: 06/02/18 23:11> Objective - Vital Signs/Intake and Output Vital Signs (last 24 hours): Temp Pulse Resp BP Pulse Ox 98.4 F 79 20 108/69 97 06/02/18 06:00 06/02/18 06:00 06/02/18 06:00 06/02/18 06:00 06/02/18 06:00 - Labs Labs: 06/02/18 06:40 06/02/18 06:40 PT 12.7 SECONDS (9.4-12.5) H 05/31/18 09:00 INR 1.16 (0.93-1.08) H 05/31/18 09:00 APTT 28.1 Seconds (25.1-36.5) 05/31/18 09:00 Attending/Attestation - Attestation I have personally seen and examined this patient.: Yes I have fully participated in the care of the patient.: Yes I have reviewed all pertinent clinical information, including history, physical exam and plan: Yes Notes (Text): This an addendum to GI the /follow up note dictated by resident This patient was seen and evaluated earlier. Agreed with findings and recommendations and they were personally reviewed and discussed with me . 06/02/18 23:10
--- NOTE | 2018-06-02 08:36 | CP.PCM.PN ---
Subjective - Date & Time of Evaluation Date of Evaluation: 06/02/18 Time of Evaluation: 06:00 - Subjective Subjective: Patient seen and examined bedside in AM. No acute issues overnight. Patient is tolerating diet well, denies any abdominal pain, nausea, or vomiting. Patient denies chest pain, SOB, fever, chills or any other complaints. Objective - Vital Signs/Intake and Output Vital Signs (last 24 hours): Temp Pulse Resp BP Pulse Ox 98.8 F 83 16 123/77 97 06/01/18 21:51 06/01/18 21:51 06/01/18 21:51 06/01/18 21:51 06/01/18 21:51 Intake and Output: 06/02/18 06/02/18 06:59 18:59 Intake Total 880 Balance 880 - Medications Medications: Current Medications Piperacillin Sod/Tazobactam Sod (Zosyn 3.375 In Ns 100ml) 100 mls @ 200 mls/hr IVPB Q6 GALLO PRN Reason: Protocol Stop: 06/07/18 18:01 Last Admin: 06/02/18 06:15 Dose: 200 mls/hr Sodium Chloride (Sodium Chloride 0.9%) 1,000 mls @ 100 mls/hr IV .Q10H GALLO Last Admin: 06/02/18 07:13 Dose: 100 mls/hr Morphine Sulfate (Morphine) 1 mg IVP Q4H PRN PRN Reason: Pain, severe (8-10) Last Admin: 05/31/18 18:48 Dose: 1 mg Ondansetron HCl (Zofran Inj) 4 mg IVP Q6H PRN PRN Reason: Nausea/Vomiting Last Admin: 05/31/18 13:20 Dose: 4 mg - Labs Labs: 06/02/18 06:40 06/02/18 06:40 PT 12.7 SECONDS (9.4-12.5) H 05/31/18 09:00 INR 1.16 (0.93-1.08) H 05/31/18 09:00 APTT 28.1 Seconds (25.1-36.5) 05/31/18 09:00 - Constitutional Appears: Non-toxic, No Acute Distress - Head Exam Head Exam: ATRAUMATIC, NORMAL INSPECTION, NORMOCEPHALIC - Eye Exam Eye Exam: EOMI, Normal appearance - ENT Exam ENT Exam: Mucous Membranes Moist - Respiratory Exam Respiratory Exam: Clear to Ausculation Bilateral, NORMAL BREATHING PATTERN - Cardiovascular Exam Cardiovascular Exam: REGULAR RHYTHM, +S1, +S2 - GI/Abdominal Exam GI & Abdominal Exam: Soft. absent: Distended, Guarding, Tenderness - Extremities Exam Extremities Exam: absent: Pedal Edema - Neurological Exam Neurological Exam: Alert, Awake, Oriented x3 - Skin Skin Exam: Normal Color, Warm Assessment and Plan - Assessment and Plan (Free Text) Assessment: 47 yr old female with mild diverticulitis Plan: -continue Zosyn -started altered/GI hepatic diet -continue zofran for nausea -continue morphine PRN for pain -patient cleared for DC -outpatient colonoscopy with GI before possible surgery for diverticulitis with Dr. Ron -Discussed plan with Dr. Ron -further recommendations as per Dr. Dr. Asaf Feliz PGY-2
--- NOTE | 2018-06-02 09:17 | CP.PCM.DIS ---
<Soham Her - Last Filed: 06/02/18 10:26> Provider - Provider Date of Admission: 05/31/18 11:56 Attending physician: Mariusz Alanis MD Primary care physician: Lance Donnelly MD Consults: GI - Dr. Karl CHIU - Dr. Ignacio Surgery Time Spent in preparation of Discharge (in minutes): 25 Hospital Course - Lab Results Lab Results: Most Recent Lab Values WBC 6.4 10^3/ul (4.5-11.0) 06/02/18 06:40 RBC 4.53 10^6/uL (3.5-6.1) 06/02/18 06:40 Hgb 12.2 g/dL (12.0-16.0) 06/02/18 06:40 Hct 37.7 % (36.0-48.0) 06/02/18 06:40 MCV 83.2 fl (80.0-105.0) 06/02/18 06:40 MCH 26.9 pg (25.0-35.0) 06/02/18 06:40 MCHC 32.4 g/dl (31.0-37.0) 06/02/18 06:40 RDW 14.3 % (11.5-14.5) 06/02/18 06:40 Plt Count 189 10^3/uL (120.0-450.0) 06/02/18 06:40 MPV 10.9 fl (7.0-11.0) 06/02/18 06:40 Gran % 46.6 % (50.0-68.0) L 06/02/18 06:40 Lymph % (Auto) 41.6 % (22.0-35.0) H 06/02/18 06:40 [place] % (Auto) 9.2 % (1.0-6.0) H 06/02/18 06:40 Eos % (Auto) 2.3 % (1.5-5.0) 06/02/18 06:40 Baso % (Auto) 0.3 % (0.0-3.0) 06/02/18 06:40 Gran # 2.99 (1.4-6.5) 06/02/18 06:40 Lymph # (Auto) 2.7 (1.2-3.4) 06/02/18 06:40 [place] # (Auto) 0.6 (0.1-0.6) 06/02/18 06:40 Eos # (Auto) 0.2 (0.0-0.7) 06/02/18 06:40 Baso # (Auto) 0.02 K/mm3 (0.0-2.0) 06/02/18 06:40 PT 12.7 SECONDS (9.4-12.5) H 05/31/18 09:00 INR 1.16 (0.93-1.08) H 05/31/18 09:00 APTT 28.1 Seconds (25.1-36.5) 05/31/18 09:00 Sodium 141 mmol/L (132-148) 06/02/18 06:40 Potassium 3.8 mmol/L (3.6-5.0) 06/02/18 06:40 Chloride 105 mmol/L (98-107) 06/02/18 06:40 Carbon Dioxide 26 mmol/L (21-33) 06/02/18 06:40 Anion Gap 13 (10-20) 06/02/18 06:40 BUN 3 mg/dL (7-21) L 06/02/18 06:40 Creatinine 0.7 mg/dl (0.7-1.2) 06/02/18 06:40 Est GFR ( Amer) > 60 06/02/18 06:40 Est GFR (Non-Af Amer) > 60 06/02/18 06:40 Random Glucose 96 mg/dL (70-110) 06/02/18 06:40 Calcium 8.7 mg/dL (8.4-10.5) 06/02/18 06:40 Magnesium 1.8 mg/dL (1.7-2.2) 05/31/18 09:00 Total Bilirubin 0.7 mg/dL (0.2-1.3) 06/02/18 06:40 AST 14 U/L (14-36) 06/02/18 06:40 ALT 14 U/L (7-56) 06/02/18 06:40 Alkaline Phosphatase 54 U/L (38-126) 06/02/18 06:40 Total Protein 6.4 g/dL (5.8-8.3) 06/02/18 06:40 Albumin 3.6 g/dL (3.0-4.8) 06/02/18 06:40 Globulin 2.8 gm/dL 06/02/18 06:40 Albumin/Globulin Ratio 1.3 (1.1-1.8) 06/02/18 06:40 Lipase 25 U/L (23-300) 05/31/18 09:00 Urine Color Yellow (YELLOW) 05/31/18 10:00 Urine Appearance Clear (CLEAR) 05/31/18 10:00 Urine pH 6.0 (4.7-8.0) 05/31/18 10:00 Ur Specific [place] 1.020 (1.005-1.035) 05/31/18 10:00 Urine Protein Negative mg/dL (<30 mg/dL) 05/31/18 10:00 Urine Glucose (UA) Negative mg/dL (NEGATIVE) 05/31/18 10:00 Urine Ketones Negative mg/dL (NEGATIVE) 05/31/18 10:00 Urine Blood Moderate (NEGATIVE) H 05/31/18 10:00 Urine Nitrate Negative (NEGATIVE) 05/31/18 10:00 Urine Bilirubin Negative (NEGATIVE) 05/31/18 10:00 Urine Urobilinogen 0.2 E.U./dL (<1 E.U./dL) 05/31/18 10:00 Ur Leukocyte Esterase Negative Mary Jo/uL (NEGATIVE) 05/31/18 10:00 Urine RBC 10 - 15 /hpf (0-2) 05/31/18 10:00 Urine WBC 0 - 2 /hpf (0-6) 05/31/18 10:00 Ur Epithelial Cells 6 - 8 /hpf (0-5) 05/31/18 10:00 Urine Bacteria Many (NEG) 05/31/18 10:00 Urine Other Fiber 05/31/18 10:00 - Hospital Course Hospital Course: 47yo female with past medical history of diverticulitis, GERD, osteoarthritis, and ovarian mass who presented to [facility] (formerly [facility]3] with c/o abdominal pain. She reported that her pain had been ongoing for the past 2 weeks, intermittent and had acutely worsened the night prior to presentation. She reported taking motrin daily for pain control which provided minimal relief. Described her pain as sharp and worsened with movement. She had also described 2 dark stools approximately [address] abd/pelvis w/o contrast on admission revealed acute sigmoid diverticulitis. GI was consulted and performed EGD which revealed chronic gastritis and hiatal hernia with no evidence of GI bleed. Surgery was consulted and recommended medical management with no surgical intervention. The patient was placed on IV zosyn during her hospital course and reported improvement of her abdominal pain. She tolerated a soft diet and subsequently discharged home on Augmentin with instructions to follow up with her PMD and maintenance welder within 1 week of discharge. Discharge Exam - Head Exam Head Exam: ATRAUMATIC, NORMAL INSPECTION, NORMOCEPHALIC - Eye Exam Eye Exam: EOMI, PERRL - ENT Exam ENT Exam: Mucous Membranes Moist - Neck Exam Neck exam: Normal Inspection - Respiratory Exam Respiratory Exam: Clear to PA & Lateral. absent: Rales, Rhonchi, Wheezes - Cardiovascular Exam Cardiovascular Exam: RRR, +S1, +S2. absent: Gallop, JVD, Rubs - GI/Abdominal Exam GI & Abdominal Exam: Soft. absent: Distended, Firm, Guarding, Rebound, Rigid, Tenderness - Extremities Exam Extremities exam: normal inspection - Neurological Exam Neurological exam: Alert, CN II-XII Intact, Oriented x3 - Psychiatric Exam Psychiatric exam: Normal Affect, Normal Mood - Skin Skin Exam: Dry, Intact, Normal Color, Warm Discharge Plan - Discharge Medications Prescriptions: Amoxicillin/Potassium Clav [Augmentin Xr 1,000-62.5 Tab] 1 each PO BID #20 tab.er.12h - Follow Up Plan Condition: STABLE Disposition: HOME/ ROUTINE Instructions: Ovarian Cysts, Low Fiber Diet, Diverticulitis (DC), Gastritis (DC ), Ulcer and Gastritis Diet Additional Instructions: 1. Follow up with your primary doctor within 1 week of discharge. 2. Follow up with your maintenance welder within 1 week of discharge. 3. 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 4. Adhere to a high fiber diet 5. Return to the emergency room should your condition worsen. Referrals: Lance Donnelly MD [Primary Care Provider] - Beatris Barajas MD [Medical Doctor] - <Mariusz Alanis - Last Filed: 06/03/18 19:26> Provider - Provider Date of Admission: 05/31/18 11:56 Attending physician: Mariusz Alanis MD Primary care physician: Lance Donnelly MD Hospital Course - Lab Results Lab Results: Most Recent Lab Values WBC 6.4 10^3/ul (4.5-11.0) 06/02/18 06:40 RBC 4.53 10^6/uL (3.5-6.1) 06/02/18 06:40 Hgb 12.2 g/dL (12.0-16.0) 06/02/18 06:40 Hct 37.7 % (36.0-48.0) 06/02/18 06:40 MCV 83.2 fl (80.0-105.0) 06/02/18 06:40 MCH 26.9 pg (25.0-35.0) 06/02/18 06:40 MCHC 32.4 g/dl (31.0-37.0) 06/02/18 06:40 RDW 14.3 % (11.5-14.5) 06/02/18 06:40 Plt Count 189 10^3/uL (120.0-450.0) 06/02/18 06:40 MPV 10.9 fl (7.0-11.0) 06/02/18 06:40 Gran % 46.6 % (50.0-68.0) L 06/02/18 06:40 Lymph % (Auto) 41.6 % (22.0-35.0) H 06/02/18 06:40 [place] % (Auto) 9.2 % (1.0-6.0) H 06/02/18 06:40 Eos % (Auto) 2.3 % (1.5-5.0) 06/02/18 06:40 Baso % (Auto) 0.3 % (0.0-3.0) 06/02/18 06:40 Gran # 2.99 (1.4-6.5) 06/02/18 06:40 Lymph # (Auto) 2.7 (1.2-3.4) 06/02/18 06:40 [place] # (Auto) 0.6 (0.1-0.6) 06/02/18 06:40 Eos # (Auto) 0.2 (0.0-0.7) 06/02/18 06:40 Baso # (Auto) 0.02 K/mm3 (0.0-2.0) 06/02/18 06:40 PT 12.7 SECONDS (9.4-12.5) H 05/31/18 09:00 INR 1.16 (0.93-1.08) H 05/31/18 09:00 APTT 28.1 Seconds (25.1-36.5) 05/31/18 09:00 Sodium 141 mmol/L (132-148) 06/02/18 06:40 Potassium 3.8 mmol/L (3.6-5.0) 06/02/18 06:40 Chloride 105 mmol/L (98-107) 06/02/18 06:40 Carbon Dioxide 26 mmol/L (21-33) 06/02/18 06:40 Anion Gap 13 (10-20) 06/02/18 06:40 BUN 3 mg/dL (7-21) L 06/02/18 06:40 Creatinine 0.7 mg/dl (0.7-1.2) 06/02/18 06:40 Est GFR ( Amer) > 60 06/02/18 06:40 Est GFR (Non-Af Amer) > 60 06/02/18 06:40 Random Glucose 96 mg/dL (70-110) 06/02/18 06:40 Calcium 8.7 mg/dL (8.4-10.5) 06/02/18 06:40 Magnesium 1.8 mg/dL (1.7-2.2) 05/31/18 09:00 Total Bilirubin 0.7 mg/dL (0.2-1.3) 06/02/18 06:40 AST 14 U/L (14-36) 06/02/18 06:40 ALT 14 U/L (7-56) 06/02/18 06:40 Alkaline Phosphatase 54 U/L (38-126) 06/02/18 06:40 Total Protein 6.4 g/dL (5.8-8.3) 06/02/18 06:40 Albumin 3.6 g/dL (3.0-4.8) 06/02/18 06:40 Globulin 2.8 gm/dL 06/02/18 06:40 Albumin/Globulin Ratio 1.3 (1.1-1.8) 06/02/18 06:40 Lipase 25 U/L (23-300) 05/31/18 09:00 Urine Color Yellow (YELLOW) 05/31/18 10:00 Urine Appearance Clear (CLEAR) 05/31/18 10:00 Urine pH 6.0 (4.7-8.0) 05/31/18 10:00 Ur Specific [place] 1.020 (1.005-1.035) 05/31/18 10:00 Urine Protein Negative mg/dL (<30 mg/dL) 05/31/18 10:00 Urine Glucose (UA) Negative mg/dL (NEGATIVE) 05/31/18 10:00 Urine Ketones Negative mg/dL (NEGATIVE) 05/31/18 10:00 Urine Blood Moderate (NEGATIVE) H 05/31/18 10:00 Urine Nitrate Negative (NEGATIVE) 05/31/18 10:00 Urine Bilirubin Negative (NEGATIVE) 05/31/18 10:00 Urine Urobilinogen 0.2 E.U./dL (<1 E.U./dL) 05/31/18 10:00 Ur Leukocyte Esterase Negative Mary Jo/uL (NEGATIVE) 05/31/18 10:00 Urine RBC 10 - 15 /hpf (0-2) 05/31/18 10:00 Urine WBC 0 - 2 /hpf (0-6) 05/31/18 10:00 Ur Epithelial Cells 6 - 8 /hpf (0-5) 05/31/18 10:00 Urine Bacteria Many (NEG) 05/31/18 10:00 Urine Other Fiber 05/31/18 10:00 - Hospital Course Hospital Course: Pt seen and examined yesterday. This is a late entry. I have reviewed the note of the ophthalmic medical technologist and agree with it. I have discussed the assessment and plan with the resident. I have reviewed the patient's labs and medications. Pain is resolved. She will be placed on PO medications. Motrin does help her pain. F/U PMD.
[2018-06-02 09:22] VITALS: BP 108/69; PULSE 79; RESP 20; TEMP 98.4
--- NOTE | 2018-06-02 11:32 | CP.PCM.PN ---
Subjective - Date & Time of Evaluation Date of Evaluation: 06/02/18 Time of Evaluation: 10:15 - Subjective Subjective: No more abdominal pain, tolerated solid food this morning, no nausea, no fevers. Objective - Vital Signs/Intake and Output Vital Signs (last 24 hours): Temp Pulse Resp BP Pulse Ox 98.8 F 83 16 123/77 97 06/01/18 21:51 06/01/18 21:51 06/01/18 21:51 06/01/18 21:51 06/01/18 21:51 Intake and Output: 06/02/18 06/02/18 06:59 18:59 Intake Total 880 Balance 880 - Medications Medications: Current Medications Piperacillin Sod/Tazobactam Sod (Zosyn 3.375 In Ns 100ml) 100 mls @ 200 mls/hr IVPB Q6 GALLO PRN Reason: Protocol Stop: 06/07/18 18:01 Last Admin: 06/02/18 06:15 Dose: 200 mls/hr Sodium Chloride (Sodium Chloride 0.9%) 1,000 mls @ 100 mls/hr IV .Q10H GALLO Last Admin: 06/02/18 07:13 Dose: 100 mls/hr Morphine Sulfate (Morphine) 1 mg IVP Q4H PRN PRN Reason: Pain, severe (8-10) Last Admin: 05/31/18 18:48 Dose: 1 mg Ondansetron HCl (Zofran Inj) 4 mg IVP Q6H PRN PRN Reason: Nausea/Vomiting Last Admin: 05/31/18 13:20 Dose: 4 mg - Labs Labs: 06/02/18 06:40 06/02/18 06:40 PT 12.7 SECONDS (9.4-12.5) H 05/31/18 09:00 INR 1.16 (0.93-1.08) H 05/31/18 09:00 APTT 28.1 Seconds (25.1-36.5) 05/31/18 09:00 - Constitutional Appears: Non-toxic - Head Exam Head Exam: NORMAL INSPECTION - Respiratory Exam Respiratory Exam: Decreased Breath Sounds - Cardiovascular Exam Cardiovascular Exam: +S1, +S2 - GI/Abdominal Exam GI & Abdominal Exam: Soft. absent: Tenderness Assessment and Plan - Assessment and Plan (Free Text) Plan: Assessment Acute sigmoid diverticulitis in this patient with history of diverticulitis, clinically improving S/P right knee meniscus surgery S/P left hip replacement S/P partial hysterectomy Plan on Zosyn; blood cx are negative; may switch to PO antibiotics since she is on a full solid diet and tolerating it and should finish 7-10 days of antibiotics with outpatient follow up with PMD
== END 2018-06-02 11:25 | disposition home or self-care (01) | DRG 392 ==
LOC: ED 08:32 → ERH 11:56 → 5RNO 12:56
PROVIDERS: ADMIT Internal Medicine Nephrology; ATTEND Internal Medicine Nephrology
PROC: 0DB68ZX Excision of Stomach, Via Natural or Artificial Opening Endoscopic, Diagnostic (ICD-10-PCS; 2018-06-01)
PROC: 0DB48ZX Excision of Esophagogastric Junction, Via Natural or Artificial Opening Endoscopic, Diagnostic (ICD-10-PCS; 2018-06-01)
PROC: 0DB98ZX Excision of Duodenum, Via Natural or Artificial Opening Endoscopic, Diagnostic (ICD-10-PCS; principal; 2018-06-01 13:30)
DX: K57.32 Diverticulitis of large intestine without perforation or abscess without bleeding (principal); K29.50 Unspecified chronic gastritis without bleeding; K44.9 Diaphragmatic hernia without obstruction or gangrene; K21.9 Gastro-esophageal reflux disease without esophagitis; N83.202 Unspecified ovarian cyst, left side; Z96.642 Presence of left artificial hip joint; Z87.891 Personal history of nicotine dependence; Z90.710 Acquired absence of both cervix and uterus; Z80.0 Family history of malignant neoplasm of digestive organs

== ENCOUNTER 2018-07-01 18:32 | Emergency (ER) | payer OTHER, BC ==
[2018-07-01 18:37] VITALS: BMI 34.3
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
[2018-07-01 21:03] VITALS: BP 135/89; PULSE 85; RESP 18; TEMP 98.7; O2SAT 100
--- NOTE | 2018-07-02 09:24 | RAD ---
Date of service: 07/01/2018 PROCEDURE: Cervical Spine Radiographs. HISTORY: Pain. COMPARISON: None. FINDINGS: BONES: Alignment maintained. No fracture. Dens Intact. DISC SPACES: Normal. SOFT TISSUES: Normal. No prevertebral soft tissue swelling. OTHER FINDINGS: None. IMPRESSION: Normal cervical spine radiographs
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
== END 2018-07-01 20:30 | disposition home or self-care (01) ==
LOC: ED 18:32
DX: S16.1XXA Strain of muscle, fascia and tendon at neck level, initial encounter (principal); S39.012A Strain of muscle, fascia and tendon of lower back, initial encounter; V43.52XA Car driver injured in collision with other type car in traffic accident, initial encounter; Y92.410 Unspecified street and highway as the place of occurrence of the external cause
CPT/HCPCS: 72050; 72110; 96372; 99285; J1885

== ENCOUNTER 2018-08-09 11:37 | Emergency (ER) | payer BC, OTHER ==
[2018-08-09 11:38] VITALS: BMI 34.3
--- NOTE | 2018-08-09 11:53 | ED PDOC ---
Arrival/HPI - General Time Seen by Provider: 08/09/18 11:47 Historian: Patient - History of Present Illness Narrative History of Present Illness (Text): 08/09/18 11:52 Patient is a 47 y/o F, with past medical history of diverticulitis, presents to the emergency department via EMS complaining of bilateral rib pain since 45 minutes prior to arrival. Patient informs worsening symptoms prompting her to take naproxen for relief. However, patient informs the pain subsequently made it hard to breathe associated with generalized chest discomfort. She was seen at [facility] in February 2018 and had normal stress test and echo that showed normal ef, and trace mitral and tricupsid regugitation. Patient informs receiving 81mg of aspirin by EMS prior to arrival. Patient denies any trauma or fall, fever, chills, nausea, vomiting, diarrhea, abdominal pain, dyspnea on exertion, cough, urinary symptoms, changes in bowel movement, vaginal bleeding, neck pain, back pain, headache, dizziness or any other complaints. Patient presents to the emergency department for medical evaluation. 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) - Infectious Disease Hx of Infectious Diseases: None - Tetanus Immunization Tetanus Immunization: Up to Date - Past Medical History Past Medical History: No Previous - Cardiac Hx Cardiac Disorders: Yes Hx Angina: Yes - Pulmonary Hx Respiratory Disorders: No - Neurological Hx Neurological Disorder: No - HEENT Hx HEENT Disorder: No - Renal Hx Renal Disorder: No - Endocrine/Metabolic Hx Endocrine Disorders: No - Hematological/Oncological Hx Blood Disorders: No - Integumentary Hx Dermatological Disorder: No - Musculoskeletal/Rheumatological Hx Musculoskeletal Disorders: No Hx Falls: No - Gastrointestinal Hx Gastrointestinal Disorders: Yes Hx Diverticulitis: Yes Hx Gastroesophageal Reflux: Yes - Genitourinary/Gynecological Hx Genitourinary Disorders: No - Psychiatric Hx Psychophysiologic Disorder: Yes Hx Anxiety: Yes Hx Substance Use: No - Past Surgical History Past Surgical History: Non-Contributing (hip surgery R knee surgery) - Surgical History Hx Hysterectomy: Yes (partial) Other/Comment: left hip replacement, torn meniscus sx - Anesthesia Hx Anesthesia: Yes Hx Anesthesia Reactions: No Hx Malignant Hyperthermia: No - Suicidal Assessment Feels Threatened In Home Enviroment: No Family/Social History - Physician Review Nursing Documentation Reviewed: Yes Family/Social History: No Known Family HX Smoking Status: Never Smoked Hx Alcohol Use: Yes (occassional) Hx Substance Use: No Hx Substance Use Treatment: No Allergies/Home Meds Allergies/Adverse Reactions: Allergies ciprofloxacin [From Cipro] Adverse Reaction (Verified 05/31/18 14:06) Delusional metronidazole [From Flagyl] Adverse Reaction (Verified 05/31/18 14:06) delusional Home Medications: Home Meds Medication Instructions Recorded Confirmed Omeprazole 40 mg PO DAILY 05/31/18 05/31/18 Review of Systems - Physician Review All systems were reviewed & negative as marked: Yes - Review of Systems Constitutional: absent: Fevers Respiratory: absent: SOB, Cough Cardiovascular: Other (bilateral rib pain) Gastrointestinal: absent: Abdominal Pain, Diarrhea, Nausea, Vomiting Genitourinary Female: absent: Dysuria, Frequency, Hematuria, Urine Output Changes, Vaginal Bleeding, Vaginal Discharge Musculoskeletal: absent: Back Pain, Neck Pain Neurological: absent: Headache, Dizziness Physical Exam Vital Signs Reviewed: Yes Vital Signs Temp Pulse Resp BP Pulse Ox 08/09/18 17:55 98 08/09/18 17:45 72 18 125/80 98 08/09/18 16:01 74 18 124/82 100 08/09/18 14:22 78 18 126/72 100 08/09/18 12:34 91 H 18 128/76 100 08/09/18 11:51 98.1 F 91 H 19 133/88 100 Temperature: Afebrile Blood Pressure: Normal Pulse: Regular Respiratory Rate: Normal Appearance: Positive for: Well-Appearing, Non-Toxic, Comfortable Pain Distress: None Mental Status: Positive for: Alert and Oriented X 3 - Systems Exam Head: Present: Atraumatic, Normocephalic Pupils: Present: PERRL Extroacular Muscles: Present: EOMI Conjunctiva: Present: Normal Mouth: Present: Moist Mucous Membranes Neck: Present: Normal Range of Motion Respiratory/Chest: Present: Clear to Auscultation, Good Air Exchange. No: Respiratory Distress, Accessory Muscle Use Cardiovascular: Present: Regular Rate and Rhythm, Normal S1, S2. No: Murmurs Abdomen: No: Tenderness, Distention, Peritoneal Signs Back: Present: Paraspinal Tenderness (R sided muscle spasm) Upper Extremity: Present: Normal Inspection. No: Cyanosis, Edema Lower Extremity: Present: Normal Inspection. No: Edema Neurological: Present: GCS=15, CN II-XII Intact, Speech Normal Skin: Present: Warm, Dry, Normal Color. No: Rashes Psychiatric: Present: Alert, Oriented x 3, Normal Insight, Normal Concentration Medical Decision Making ED Course and Treatment: 08/09/18 12:30 Impression: 47 year old female presents to the emergency department complaining of bilateral rib discomfort. Patient's presentations are most consistent with musculoskeletal rib pain. Differential Diagnosis included but are not limited to: Musculoskeletal rib pain Plan: -- EKG -- Labs -- Aspirin -- X-ray of bilateral ribs -- Reassess and disposition Prior Visits: Notes and results from previous visits were reviewed. Progress Notes: EKG: Ordered, reviewed, and independently interpreted the EKG. Rate : 98 BPM Rhythm : NSR Interpretation : QTC of 464. 08/09/18 14:28 CTA was done in 02/2018 that was negative for aneursym. Reports left sided paraspinal muscle spasm which is tender to palpation. 08/09/18 14:42 X-ray of bilateral ribs reviewed by radiologist, shows no rib fracture. 08/09/18 16:22 On reevaluation, patient reports that rib and back pain has resolved after toradol, valium, and flexeril. Patient has had no chest pain in the ED and has normal stress test in February. Repeat ekg shows NSR at 75bpm with qtc:448. Repeat trop negative. Patient feels better. She was instructed to follow-up with PMD - Lab Interpretations Lab Results: 08/09/18 12:00 08/09/18 12:00 Lab Results 08/09/18 16:47: Troponin I < 0.01 08/09/18 13:00: D-Dimer, Quantitative < 200 08/09/18 12:00: Sodium 138, Potassium 4.0, Chloride 106, Carbon Dioxide 23, Anion Gap 13, BUN 11, Creatinine 0.8, Est GFR ( Amer) > 60, Est GFR (Non- Af Amer) > 60, Random Glucose 95, Calcium 9.3, Phosphorus 2.3 L, Magnesium 1.9, Total Bilirubin 0.3, AST 16, ALT 15, Alkaline Phosphatase 58, Total Creatine Kinase 49, Troponin I < 0.01, Total Protein 7.1, Albumin 4.1, Globulin 3.0, Albumin/Globulin Ratio 1.4, Lipase 49 08/09/18 12:00: WBC 11.4 H D, RBC 4.93, Hgb 13.6, Hct 42.4, MCV 86.0, MCH 27.6, MCHC 32.1, RDW 14.9 H, Plt Count 232, MPV 10.4, Gran % 61.5, Lymph % (Auto) 31.9 , Menard % (Auto) 5.6, Eos % (Auto) 0.8 L, Baso % (Auto) 0.2, Gran # 7.03 H, Lymph # (Auto) 3.7 H, Menard # (Auto) 0.6, Eos # (Auto) 0.1, Baso # (Auto) 0.02 - RAD Interpretation Radiology Orders: 08/09/18 12:19 RIBS BILATERAL W/PA CHEST [RAD] Stat - EKG Interpretation Interpreted by ED Physician: Yes Type: 12 lead EKG - Medication Orders Current Medication Orders: Discontinued Medications Aspirin (Aspirin Chewable) 234 mg PO STAT STA Stop: 08/09/18 12:09 Last Admin: 08/09/18 12:24 Dose: Not Given Non-Admin Reason: Patient Refused Comments: "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 I'm not sure how much. I don't want to take more." MD aware Cyclobenzaprine HCl (Flexeril) 5 mg PO STAT STA Stop: 08/09/18 15:30 Last Admin: 08/09/18 16:09 Dose: 5 mg Diazepam (Valium) 5 mg PO STAT STA PRN Reason: Protocol Stop: 08/09/18 14:27 Last Admin: 08/09/18 14:44 Dose: 5 mg Sodium Chloride (Sodium Chloride 0.9%) 500 mls @ 999 mls/hr IV .Q31M STA Stop: 08/09/18 14:15 Last Admin: 08/09/18 14:25 Dose: 999 mls/hr eMAR Start Stop Document 08/09/18 14:25 SF (Rec: 08/09/18 14:46 SF [id number]) Intravenous Solution Start Date 08/09/18 Start Time 14:25 End Date 08/09/18 End time 14:55 Total Infusion Time 30 - Scribe Statement The provider has reviewed the documentation as recorded by the Annamariaibe Olimpia Owusu. All medical record entries made by the Annamariaibe were at my direction and personally dictated by me. I have reviewed the chart and agree that the record accurately reflects my personal performance of the history, physical exam, medical decision making, and the department course for this patient. I have also personally directed, reviewed, and agree with the discharge instructions and disposition. Disposition/Present on Arrival - Present on Arrival Any Indicators Present on Arrival: No History of DVT/PE: No History of Uncontrolled Diabetes: No Urinary Catheter: No History Surgical Site Infection Following: None - Disposition Have Diagnosis and Disposition been Completed?: Yes Diagnosis: Muscle spasm Disposition: HOME/ ROUTINE Disposition Time: 17:34 Patient Plan: Discharge Patient Problems: Current Active Problems Problem Status Onset Muscle spasm Acute Condition: GOOD Discharge Instructions (ExitCare): Muscle Spasms (DC) Additional Instructions: Follow-up with PMD within 2 days. Return immediately with any worsening symptoms. Take motrin and valium for pain. Prescriptions: diaZEpam [Valium] 5 mg PO TID PRN #10 tab PRN Reason: Muscle Spasm Ibuprofen [Motrin] 400 mg PO Q6 PRN #20 tab PRN Reason: Pain, Mild (1-3) Forms: WORK NOTE
[2018-08-09 11:56] VITALS: TEMP 98.1
[2018-08-09 12:17] LABS: BASO # 0.02 K/mm3 (0.0-2.0); BASO % 0.2 % (0.0-3.0); EOS # 0.1 (0.0-0.7); EOS % 0.8 % (1.5-5.0); GRAN # 7.03 (1.4-6.5); GRAN % 61.5 % (50.0-68.0); HEMOGLOBIN 13.6 g/dL (12.0-16.0); LYMPH # 3.7 (1.2-3.4); LYMPH % 31.9 % (22.0-35.0); MEAN CORPUSCULAR HEMOGLOBIN 27.6 pg (25.0-35.0); MEAN CORPUSCULAR HGB CONC 32.1 g/dl (31.0-37.0); MEAN PLATELET VOLUME 10.4 fl (7.0-11.0); MONO # 0.6 (0.1-0.6); MONO % 5.6 % (1.0-6.0); RBC 4.93 10^6/uL (3.5-6.1); RED CELL DISTRIBUTION WIDTH 14.9 % (11.5-14.5); WHITE BLOOD COUNT 11.4 10^3/ul (4.5-11.0)
[2018-08-09 12:35] VITALS: RESP 18
[2018-08-09 12:50] LABS: ALB/GLOB RATIO 1.4 (1.1-1.8); ALBUMIN 4.1 g/dL (3.0-4.8); ALT/SGPT 15 U/L (7-56); AST/SGOT 16 U/L (14-36); BLOOD UREA NITROGEN 11 mg/dL (7-21); CALCIUM 9.3 mg/dL (8.4-10.5); GFR NON-AFRICAN AMERICAN > 60; LIPASE 49 U/L (23-300)
[2018-08-09 13:02] LABS: TROPONIN I < 0.01 ng/mL
[2018-08-09] MEDS ORDERED: Sodium Chloride 0.9% 500 ML IV STA (13:45)
--- NOTE | 2018-08-09 14:21 | RAD ---
Date of service: 08/09/2018 PROCEDURE: Radiographs of the chest and bilateral ribs HISTORY: b/l rib pain COMPARISON: 03/14/2018. TECHNIQUE: Frontal radiograph of the chest and multiple oblique radiographs of the bilateral ribs were obtained. FINDINGS: RIGHT RIBS: No acute fracture or focal lesion visualized. LEFT RIBS: No acute fracture or focal lesion visualized. LUNGS: Clear. PLEURA: No pneumothorax or pleural fluid. CARDIOVASCULAR: Normal sized heart. No pulmonary vascular congestion. OTHER FINDINGS: None. IMPRESSION: No acute rib fracture Clear lungs.
[2018-08-09 18:33] VITALS: BP 125/80; PULSE 72; O2SAT 98
--- NOTE | 2018-08-09 20:54 | CARD ---
APPROVED REPORT Date of service: 08/09/2018 EKG Measurement Heart [id number] CO 130P26 [id number] <Conclusion> Normal sinus rhythm Normal ECG
--- NOTE | 2018-08-10 14:04 | CARD ---
APPROVED REPORT Date of service: 08/09/2018 EKG Measurement Heart [id number] CO 132P45 [id number] <Conclusion> Normal sinus rhythm Prolonged QT Abnormal ECG
== END 2018-08-09 17:55 | disposition home or self-care (01) ==
LOC: ED 11:37
DX: M62.838 Other muscle spasm (principal); I20.9 Angina pectoris, unspecified; K21.9 Gastro-esophageal reflux disease without esophagitis; Z96.642 Presence of left artificial hip joint
CPT/HCPCS: 71111; 80053; 82550; 83690; 83735; 84100; 84484; 85025; 85378; 93005; 99285; J7040

== ENCOUNTER 2019-01-15 13:10 | Inpatient (IN) | payer BC | END 2019-01-17 19:06 | disposition home or self-care (01) | LOC: ED 13:10 → ERH 16:56 → 2RSO 01-16 17:34 → ERH 01-16 17:34 → 2RSO 01-16 17:34 ==

== ENCOUNTER 2019-02-12 16:03 | Emergency (ER) | payer BC ==
[2019-02-12 16:03] VITALS: BMI 34.3
[2019-02-12 16:44] VITALS: TEMP 98.1
--- NOTE | 2019-02-12 17:11 | ED PDOC ---
Arrival/HPI - General Historian: Patient - Critical Care Critical Care Minutes: 30 minutes - History of Present Illness Narrative History of Present Illness (Text): 02/12/19 17:11 48-year-old female with past medical history of diverticulitis, GERD, colitis, osteoarthritis presents to the ED with lower left quadrant pain for the pasts three days. Patient states its sharp in nature with no radiation. Patient rates the pain a 8/10 in severity. Patient reports subjective fevers in conjunction with the presenting complaints. Patient also reports one episode of emesis in conjunction. Patient denies any chest pain, shortness of breath, headaches, syncopal episodes, or any other complaints. PMH: As above PSH: Partial hysterectomy, meniscus repair, left hip replacement Medications: Refer to MAR Allergies: Ciprofloxacin and Flagyl SH: Denies any smoking, drinking, or recreational drug use FH: Brother passed from [place] 1 week ago, father with heart disease Time/Duration: < week Symptom Onset: Sudden Symptom Course: Unchanged Quality: Stabbing Severity Level: 8 Activities at Onset: Rest Context: Sitting, Standing, Walking <Lee Cameron - Last Filed: 02/12/19 17:27> <Angel Catalan - Last Filed: 02/12/19 18:46> - General Chief Complaint: Abdominal Pain Time Seen by Provider: 02/12/19 16:07 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) - Infectious Disease Hx of Infectious Diseases: None - Tetanus Immunization Tetanus Immunization: Up to Date - Reproductive Menopause: Yes - Past Medical History Past Medical History: No Previous - Cardiac Hx Cardiac Disorders: Yes (rapid heart rate) Hx Hypertension: Yes - Pulmonary Hx Respiratory Disorders: No - Neurological Hx Neurological Disorder: No - HEENT Hx HEENT Disorder: No - Renal Hx Renal Disorder: No - Endocrine/Metabolic Hx Endocrine Disorders: No - Hematological/Oncological Hx Blood Disorders: No - Integumentary Hx Dermatological Disorder: No - Musculoskeletal/Rheumatological Hx Musculoskeletal Disorders: No Hx Falls: No - Gastrointestinal Hx Gastrointestinal Disorders: Yes Hx Diverticulitis: Yes Hx Gastroesophageal Reflux: Yes - Genitourinary/Gynecological Hx Genitourinary Disorders: No - Psychiatric Hx Psychophysiologic Disorder: Yes Hx Anxiety: Yes Hx Substance Use: No - Past Surgical History Past Surgical History: Non-Contributing (hip surgery R knee surgery) - Surgical History Hx Hysterectomy: Yes (partial) Hx Tubal Ligation: Yes Other/Comment: left hip replacement, torn meniscus sx - Anesthesia Hx Anesthesia: Yes Hx Anesthesia Reactions: No Hx Malignant Hyperthermia: No - Suicidal Assessment Feels Threatened In Home Enviroment: No <Lee Cameron - Last Filed: 02/12/19 17:27> Family/Social History - Physician Review Nursing Documentation Reviewed: Yes Family/Social History: No Known Family HX Smoking Status: Never Smoked Hx Alcohol Use: No (occassional) Hx Substance Use: No Hx Substance Use Treatment: No <Lee Cameron - Last Filed: 02/12/19 17:27> Allergies/Home Meds <Lee Cameron - Last Filed: 02/12/19 17:27> <Angel Catalan - Last Filed: 02/12/19 18:46> Allergies/Adverse Reactions: Allergies ciprofloxacin [From Cipro] Adverse Reaction (Verified 02/12/19 16:44) Delusional metronidazole [From Flagyl] Adverse Reaction (Verified 02/12/19 16:44) delusional Home Medications: Home Meds Medication Instructions Recorded Confirmed Omeprazole 40 mg PO DAILY 05/31/18 02/12/19 Aspirin [Ecotrin] 81 mg PO DAILY 02/12/19 02/12/19 Melatonin 20 mg PO DAILY 02/12/19 02/12/19 Metoprolol Succinate XL [Toprol XL] 50 mg PO DAILY 02/12/19 02/12/19 Review of Systems - Physician Review All systems were reviewed & negative as marked: Yes - Review of Systems Constitutional: Normal. absent: Fatigue Eyes: Normal. absent: Vision Changes, Photophobia ENT: Normal. absent: Hearing Changes, Rhinorrhea Respiratory: Normal. absent: SOB, Cough Cardiovascular: Normal. absent: Chest Pain, Syncope Gastrointestinal: Abdominal Pain. absent: Constipation, Diarrhea, Vomiting, Appetite Changes Musculoskeletal: Normal. absent: Arthralgias, Back Pain Skin: Normal. absent: Rash, Pruritis Neurological: Normal. absent: Headache, Facial Droop Endocrine: Normal. absent: Diaphoresis, Polyuria Hemo/Lymphatic: Normal. absent: Adenopathy, Easy Bleeding <Lee Cameron - Last Filed: 02/12/19 17:27> Physical Exam Vital Signs Reviewed: Yes Vital Signs Temp Pulse Resp BP Pulse Ox 02/12/19 16:37 98.1 F 111 H 20 125/82 96 Temperature: Afebrile Blood Pressure: Normal Pulse: Tachycardic Respiratory Rate: Normal Appearance: Positive for: Well-Appearing, Non-Toxic, Comfortable Pain Distress: Moderate Mental Status: Positive for: Alert and Oriented X 3 - Systems Exam Head: Present: Atraumatic, Normocephalic. No: Abrasion Pupils: Present: PERRL. No: Sluggish Extroacular Muscles: Present: EOMI. No: Gaze Palsy Conjunctiva: Present: Normal. No: Injected Mouth: Present: Moist Mucous Membranes Neck: Present: Normal Range of Motion. No: Meningeal Signs, JVD Respiratory/Chest: Present: Clear to Auscultation, Good Air Exchange. No: Wheezes, Decreased Breath Sounds Cardiovascular: Present: Normal S1, S2. No: Regular Rate and Rhythm, Tachycardic Upper Extremity: Present: Normal Inspection. No: Cyanosis, Edema Lower Extremity: Present: Normal Inspection. No: Edema, CALF TENDERNESS Neurological: Present: CN II-XII Intact Skin: Present: Dry, Normal Color. No: Rashes Psychiatric: Present: Oriented x 3, Normal Insight <Lee Cameron - Last Filed: 02/12/19 17:27> Vital Signs Temp Pulse Resp BP Pulse Ox 02/12/19 16:37 98.1 F 111 H 20 125/82 96 <Angel Catalan - Last Filed: 02/12/19 18:46> Medical Decision Making ED Course and Treatment: 02/12/19 17:21 48 year old female presents with lower left quadrant pain for the past three days. Plan: CBC/CMP Abdomen/pelvis ct u/a and urine culture 02/12/19 17:27 EKG: sinus rhythm @[address]-T changes. <Lee Cameron - Last Filed: 02/12/19 17:27> ED Course and Treatment: Seen and examined with resident. 48 y/o F p/w abdominal pain. On exam, LLQ tenderness. CT shows diverituclitis without abscess or complication. Patient offered admission, wishes to go home. Discharged, f/u private GI, instructed to return to ED for worsening pain, fever, vomiting, dyspnea, or any other problem. - Lab Interpretations Lab Results: Total Bilirubin 0.6 mg/dL (0.2-1.3) 02/12/19 17:20 AST 20 U/L (14-36) 02/12/19 17:20 ALT 9 U/L (7-56) 02/12/19 17:20 Alkaline Phosphatase 64 U/L (38-126) 02/12/19 17:20 Total Protein 7.5 g/dL (5.8-8.3) 02/12/19 17:20 Albumin 4.1 g/dL (3.0-4.8) 02/12/19 17:20 Globulin 3.4 gm/dL 02/12/19 17:20 Albumin/Globulin Ratio 1.2 (1.1-1.8) 02/12/19 17:20 Urine Color Yellow (YELLOW) 02/12/19 17:15 Urine Appearance Cloudy (CLEAR) 02/12/19 17:15 Urine pH 6.0 (4.7-8.0) 02/12/19 17:15 Ur Specific [place] >= 1.030 (1.005-1.035) 02/12/19 17:15 Urine Protein 30 mg/dL (<30 mg/dL) H 02/12/19 17:15 Urine Glucose (UA) Negative mg/dL (NEGATIVE) 02/12/19 17:15 Urine Ketones 40 mg/dL (NEGATIVE) H 02/12/19 17:15 Urine Blood Small (NEGATIVE) H 02/12/19 17:15 Urine Nitrate Negative (NEGATIVE) 02/12/19 17:15 Urine Bilirubin Negative (NEGATIVE) 02/12/19 17:15 Urine Urobilinogen 0.2 E.U./dL (<1 E.U./dL) 02/12/19 17:15 Ur Leukocyte Esterase Trace Mary [place]/uL (NEGATIVE) H 02/12/19 17:15 Urine RBC 2 - 5 /hpf (0-2) H 02/12/19 17:15 Urine WBC 1 - 3 /hpf (0-6) 02/12/19 17:15 Ur Epithelial Cells 10 - 12 /hpf (0-5) H 02/12/19 17:15 Urine Bacteria Many /hpf (NONE) 02/12/19 17:15 Urine HCG, Qual Negative (NEGATIVE) 02/12/19 17:15 Urine HCG, Qual Negative (NEGATIVE) 02/12/19 17:15 - RAD Interpretation Radiology Orders: 02/12/19 17:16 ABDOMEN & PELVIS [ABD & PELVIS W/O PO OR IV CONT] [CT] Stat - Medication Orders Current Medication Orders: Discontinued Medications Ketorolac Tromethamine (Toradol) 30 mg IVP STAT STA Stop: 02/12/19 18:34 <Angel Catalan - Last Filed: 02/12/19 18:46> Disposition/Present on Arrival - Present on Arrival History of DVT/PE: No History of Uncontrolled Diabetes: No Urinary Catheter: No History of Decub. Ulcer: No History Surgical Site Infection Following: None <Lee Cameron - Last Filed: 02/12/19 17:27> - Present on Arrival Any Indicators Present on Arrival: No - Disposition Have Diagnosis and Disposition been Completed?: Yes Disposition Time: 18:43 Patient Plan: Discharge <Angel Catalan - Last Filed: 02/12/19 18:46> - Disposition Diagnosis: Diverticulitis Disposition: HOME/ ROUTINE Patient Problems: Current Active Problems Problem Status Onset Diverticulitis Acute Condition: GOOD Discharge Instructions (ExitCare): Diverticulitis (DC) Prescriptions: Acetaminophen [Tylenol 325mg tab] 2 tab PO Q4H #30 tab Amoxicillin/Clavulanate [Augmentin 875 MG-125 MG] 1 tab PO BID #20 tab Ibuprofen [Motrin] 1 tab PO Q6 #30 tab Ondansetron ODT [Zofran ODT] 4 mg PO Q8 #12 odt Referrals: Lance Donnelly MD [Primary Care Provider] - Follow up with primary Beatris Barajas MD [Medical Doctor] - Follow up with primary Forms: [employer] (Spanish)
[2019-02-12 17:40] LABS: BASO # 0.02 K/mm3 (0.0-2.0); BASO % 0.2 % (0.0-3.0); EOS # 0.1 (0.0-0.7); HEMOGLOBIN 12.5 g/dL (12.0-16.0); LYMPH # 2.1 (1.2-3.4); LYMPH % 18.5 % (22.0-35.0); MEAN CELL VOLUME 88.5 fl (80.0-105.0); MEAN CORPUSCULAR HEMOGLOBIN 27.2 pg (25.0-35.0); MEAN CORPUSCULAR HGB CONC 30.7 g/dl (31.0-37.0); MEAN PLATELET VOLUME 10.6 fl (7.0-11.0); MONO # 0.7 (0.1-0.6); MONO % 6.6 % (1.0-6.0); RBC 4.6 10^6/uL (3.5-6.1); RED CELL DISTRIBUTION WIDTH 14.1 % (11.5-14.5); WHITE BLOOD COUNT 11.1 10^3/uL (4.5-11.0)
[2019-02-12 17:44] LABS: URINE BILIRUBIN NEGATIVE (NEGATIVE); URINE BLOOD SMALL (NEGATIVE); URINE GLUCOSE (UA) NEGATIVE (NEGATIVE); URINE LEUKOCYTE ESTERASE TRACE Leu/uL (NEGATIVE); URINE PROTEIN 30 mg/dL (<30 mg/dL); URINE UROBILINOGEN 0.2 E.U./dL (<1 E.U./dL)
[2019-02-12 17:45] LABS: URINE APPEARANCE CLOUDY (CLEAR); URINE COLOR YELLOW (YELLOW)
[2019-02-12 17:47] LABS: HCG,QUALITATIVE URINE NEGATIVE (NEGATIVE)
[2019-02-12 17:53] LABS: ALB/GLOB RATIO 1.2 (1.1-1.8); ALBUMIN 4.1 g/dL (3.0-4.8); ALT/SGPT 9 U/L (7-56); AST/SGOT 20 U/L (14-36); BLOOD UREA NITROGEN 10 mg/dL (7-21); CALCIUM 9.3 mg/dL (8.4-10.5); GFR NON-AFRICAN AMERICAN > 60
[2019-02-12 17:58] LABS: URINE BACTERIA MANY /hpf
[2019-02-12] MEDS ORDERED: Amoxicillin-Clav 875-125 mg Tab PO STA (18:42)
[2019-02-12 19:26] VITALS: BP 120/77; PULSE 75; RESP 18; O2SAT 100
--- NOTE | 2019-02-12 22:40 | CT ---
Date of service: 02/12/2019 PROCEDURE: CT Abdomen and Pelvis without intravenous contrast HISTORY: COMPARISON: 05/31/2018 TECHNIQUE: CT scan of the abdomen and pelvis was performed without administration of intravenous contrast. Oral contrast was not administered. Coronal and sagittal reformatted images were obtained. Radiation dose: Total exam DLP = 945.95 mGy-cm. This CT exam was performed using one or more of the following dose reduction techniques: Automated exposure control, adjustment of the mA and/or kV according to patient size, and/or use of iterative reconstruction technique. FINDINGS: LOWER THORAX: The visualized lungs are clear. LIVER: Normal in size. No gross lesion or ductal dilatation. GALLBLADDER AND BILE DUCTS: Well distended. No calcified gallstones. No common bile duct dilatation. PANCREAS: Normal in size. No gross lesion or ductal dilatation. SPLEEN: Normal in size. ADRENALS: Normal in size. No discrete nodule. KIDNEYS AND URETERS: Both kidneys are normal in size. No hydronephrosis or nephrolithiasis. VASCULATURE: Normal in caliber. No aortic aneurysm. No aortic atherosclerotic calcification or mural plaque present. BOWEL: Evaluation of the bowel is limited in the absence of oral contrast. The small bowel loops are normal in caliber. There is left colonic diverticulosis. There is severe circumferential mural thickening in the sigmoid colon with extensive pericolonic inflammatory changes. No evidence for perforation or abscess. APPENDIX: Normal appendix. PERITONEUM: No free fluid. No free air. LYMPH NODES: No enlarged lymph nodes. BLADDER: Decompressed. REPRODUCTIVE: The uterus is normal in size. There is a 4.3 x 3.8 cm simple cyst in the left ovary. BONES: No acute fracture. Within normal limits for the patient's age. Status post left hip arthroplasty OTHER FINDINGS: None. IMPRESSION: 1. Acute uncomplicated sigmoid diverticulitis. 2. 4.3 x 3.8 cm simple cyst in the left ovary. Follow-up ultrasound in 3-6 month interval is recommended to assess stability/resolution. A preliminary report was provided by [employer].
--- NOTE | 2019-02-13 17:08 | CARD ---
APPROVED REPORT Date of service: 02/12/2019 EKG Measurement Heart [id number] <Conclusion> Normal sinus rhythm Nonspecific ST-T changes Abnormal ECG
== END 2019-02-12 19:25 | disposition home or self-care (01) ==
LOC: ED 16:03
DX: K57.32 Diverticulitis of large intestine without perforation or abscess without bleeding (principal); I10 Essential (primary) hypertension; M19.90 Unspecified osteoarthritis, unspecified site
CPT/HCPCS: 74176; 80053; 81001; 81025; 84703; 85025; 87086; 93005; 96374; 99283; J1885